=== PATIENT | female | born 1980 ===

== ENCOUNTER 2016-07-14 14:09 | Emergency (ER) | payer SELFPAY ==
[2016-07-14 14:09] VITALS: BMI 23.0
--- NOTE | 2016-07-14 15:00 | C.PDOC ---
History Of Present Illness 35 yo female come in for evaluation of Right thumb blunt injury sustained last night " shower door closed on my my finger by accident". pain is localized over the Right thumb, worse with movement. Otherwise, denies deformity, weakness, sensory or vascular deficits to Right hand. FYI: Pt is well known to ED due to multiple visits to due various complaints. Time Seen by Provider: 07/14/16 14:25 Chief Complaint (Nursing): Upper Extremity Problem/Injury History Per: Patient Onset/Duration Of Symptoms: Sudden Onset Current Symptoms Are (Timing): Still Present Past Medical History Reviewed: Historical Data, Nursing Documentation, Vital Signs Vital Signs: Last Vital Signs Temp 98.1 F 07/14/16 14:19 Pulse 89 07/14/16 14:19 Resp 16 07/14/16 14:19 BP 101/63 07/14/16 14:19 Pulse Ox 100 07/14/16 14:19 - Medical History PMH: Asthma, Back Problems, Migraine Denies: Chronic Kidney Disease Surgical History: - [facility] Procedures INTRODUCE OF OTH THERAP SUBST INTO RESP TRACT, VIA OPENING (07/04/15) Family History: States: No Known Family Hx - Social History Hx Tobacco Use: Yes Hx Alcohol Use: No Hx Substance Use: No - Immunization History Hx Tetanus Toxoid Vaccination: No Hx Influenza Vaccination: No Hx Pneumococcal Vaccination: No Review Of Systems Except As Marked, All Systems Reviewed And Found Negative. Musculoskeletal: Positive for: Other (Right thumb pain) Skin: Positive for: Bruising Neurological: Negative for: Weakness, Numbness Physical Exam - Physical Exam Appears: Well, Non-toxic, No Acute Distress Skin: Normal Color, Warm Extremity: Normal ROM (mild decrease on AROM over Right 1st MCPJ due to pain), Tenderness (over dorsal aspect Right hand overlying 1st MCB and over 1st MCJJ with nos mild edema. NO palpable defomrity, no ecchymoses, no skin changes.), Capillary Refill (less than 2sec to Right thumb), No Deformity, Other (no neurovascular deficits to Right thumb distally to injury.) Neurological/Psych: Oriented x3, Normal Speech, Normal Motor, Normal Sensation, Normal Reflexes ED Course And Treatment - Other Rad Right thumb X-Ray: Interpreted by Me, Viewed By Me Interpretation: no acute fx or dislocation Progress Note: on re-eavluation, pt is afebrile, hemodynamiclay stable. non- toxic. Right hand; exam c/w thumb contusion. no skin changes, no neurovascular deficits. xray review and appears noraml. Aluminium finger Splint applied to Right thumb. Analgesics given. Pt advised and ref. to F/u with hand specialist for re-evaluation. Return if any new changes. Disposition Counseled Patient/Family Regarding: Studies Performed, Diagnosis, Need For Followup, Rx Given - Disposition Referrals: Ileana Shah MD [Staff Provider] - Disposition: HOME/ ROUTINE Disposition Time: 15:57 Condition: STABLE Additional Instructions: Splint Light duty to injured finger for 1 week take pain medication as need for pain Follow up with Hand specialist in 2-3 days for re-evaluation. Prescriptions: traMADol [Ultram] 50 mg PO TID #7 tab Instructions: Finger Sprain (ED) - Clinical Impression Clinical Impression: Finger contusion
--- NOTE | 2016-07-14 16:10 | RAD ---
PROCEDURE: Right Thumb radiographs. HISTORY: injury COMPARISON: None available. FINDINGS: RIGHT THUMB: Unremarkable right 1st digit without acute displaced fracture identified. Remainder of the right hand (as seen on the AP view) grossly unremarkable. JOINTS: No dislocation. SOFT TISSUES: Unremarkable. No evidence of radiopaque foreign body. OTHER FINDINGS: None. IMPRESSION: No acute displaced fracture or dislocation identified. If symptoms persist or if there is continued clinical concern, x-ray follow-up in 7-10 days should be considered.
[2016-07-14 16:20] VITALS: BP 105/62; PULSE 81; RESP 17; TEMP 98.7; O2SAT 99
== END 2016-07-14 16:19 | disposition home or self-care (01) ==
LOC: C.ER 14:09
DX: S60.011A Contusion of right thumb without damage to nail, initial encounter (principal); W23.0XXA Caught, crushed, jammed, or pinched between moving objects, initial encounter; Y93.89 Activity, other specified; Y92.002 Bathroom of unspecified non-institutional (private) residence as the place of occurrence of the external cause

== ENCOUNTER 2016-09-20 13:26 | Emergency (ER) | payer MEDICAID, OTHER ==
[2016-09-20 13:26] VITALS: BMI 23.8
[2016-09-20 13:55] VITALS: TEMP 97.9
--- NOTE | 2016-09-20 15:30 | C.PDOC ---
History Of Present Illness 36 y/o female, history of asthma, presents to ED s/p fall down 4 steps and hitting her right anterior ribs. Denies head injury or LOC. Now complains of pain that worsens with breathing and movement. No improvement with Tylenol, Motrin. Denies abdominal pain, nausea, vomiting, or other associated symptoms. Time Seen by Provider: 09/20/16 14:36 Chief Complaint (Nursing): Upper Extremity Problem/Injury History Per: Patient History/Exam Limitations: no limitations Onset/Duration Of Symptoms: Hrs Current Symptoms Are (Timing): Still Present Exacerbating Factor(s): Movement Recent travel outside of the [place]: No Past Medical History Reviewed: Historical Data, Nursing Documentation, Vital Signs Vital Signs: Last Vital Signs Temp 97.9 F 09/20/16 13:52 Pulse 75 09/20/16 18:16 Resp 18 09/20/16 18:16 BP 102/62 09/20/16 18:16 Pulse Ox 98 09/20/16 18:16 - Medical History PMH: Asthma, Back Problems, Migraine Surgical History: (x3) - [facility] Procedures INTRODUCE OF OTH THERAP SUBST INTO RESP TRACT, VIA OPENING (07/04/15) Family History: States: Unknown Family Hx - Social History Hx Tobacco Use: Yes Hx Alcohol Use: No Hx Substance Use: No - Immunization History Hx Tetanus Toxoid Vaccination: No Hx Influenza Vaccination: No Hx Pneumococcal Vaccination: No Review Of Systems Except As Marked, All Systems Reviewed And Found Negative. Constitutional: Negative for: Fever, Chills Cardiovascular: Negative for: Chest Pain Respiratory: Negative for: Cough, Shortness of Breath Gastrointestinal: Negative for: Nausea, Vomiting, Abdominal Pain Musculoskeletal: Positive for: Other (right anterior rib pain ) Skin: Negative for: Rash Neurological: Negative for: Headache, Dizziness Physical Exam - Physical Exam Appears: Non-toxic, Other (in obviois discomfort) Skin: Normal Color, Warm, Dry Head: Atraumatic, Normacephalic Neck: No Midline Cervical Tenderness, No Paracervical Tenderness, No Step Off Deformity, Supple Chest: Symmetrical, Tenderness (right rib tenderness, distal to breast, no crepitus or stepoff noted), No Ecchymosis Cardiovascular: Rhythm Regular Respiratory: Normal Breath Sounds, No Rales, No Rhonchi, No Wheezing Gastrointestinal/Abdominal: Soft, No Tenderness (no RUQ tenderness), No Distention, No Guarding, No Rebound Back: Normal Inspection, No CVA Tenderness, No Paraspinal Tenderness Extremity: Normal ROM, Capillary Refill (< 2 sec. ) Neurological/Psych: Oriented x3, Normal Speech, Normal Cognition, Other (neuro intact) ED Course And Treatment O2 Sat by Pulse Oximetry: 100 (RA) Pulse Ox Interpretation: Normal - Other Rad Chest/Ribs XR X-Ray: Viewed By Me, Read By Radiologist Interpretation: IMPRESSION: No acute findings related to/accounting for the clinical presentation. Medical Decision Making Medical Decision Making: pt sts she takes codeine when needed for pain; denies rash for allergy, sts it only gives her an upset stomach. pt reports decreased pain after one percocet. pt sts she has muscle relaxants at home. will dc with aleve and tylenol, take own muscle relaxant. Disposition - Disposition Referrals: Inessa Han MD [Medical Doctor] - Disposition: HOME/ ROUTINE Disposition Time: 18:02 Condition: IMPROVED Additional Instructions: Take muscle relaxants as prescribed that you have at home. Cold packs to affected area several times a day. Take Aleve every 12 hours. take Tylenol in between. FOllow up with your pmd, in 1-2 days. Return to ER immediately for any shortness of breathing. worse pain, or any other concerns. Prescriptions: Acetaminophen [Acetaminophen Extra Strength] 1,000 mg PO TID #30 tablet Naproxen 500 mg PO BID #20 tab Instructions: Rib Contusion (ED) Forms: General Discharge Instructions - Clinical Impression Clinical Impression: Contusion of rib on right side - PA / GLASS DECORATOR / Resident Statement MD/DO has reviewed & agrees with the documentation as recorded. - Scribe Statement The provider has reviewed the documentation as recorded by the Scribe Kulwinder Cueto All medical record entries made by the Dcibmiguel ángel were at my direction and personally dictated by me. I have reviewed the chart and agree that the record accurately reflects my personal performance of the history, physical exam, medical decision making, and the department course for this patient. I have also personally directed, reviewed, and agree with the discharge instructions and disposition.
[2016-09-20] MEDS ORDERED: Oxycodone/Acetaminophen 5/325 mg Tab PO STA (16:04)
[2016-09-20] MEDS ORDERED: Oxycodone/Acetaminophen 5/325 mg Tab ONE (16:10)
--- NOTE | 2016-09-20 17:15 | RAD ---
PROCEDURE: Chest and right ribs HISTORY: Anterior posttraumatic right rib pain COMPARISON: 07/04/2016 TECHNIQUE: Frontal radiograph of the chest and multiple oblique radiographs of the right ribs were obtained. FINDINGS: RIGHT RIBS: No fracture or focal lesion visualized. LUNGS: Clear. PLEURA: No pneumothorax or pleural fluid. CARDIOVASCULAR: Normal sized heart. No pulmonary vascular congestion. OTHER FINDINGS: None. IMPRESSION: No acute findings related to/accounting for the clinical presentation.
[2016-09-20 18:16] VITALS: BP 102/62; PULSE 75; RESP 18
[2016-09-21 13:46] VITALS: O2SAT 100
== END 2016-09-20 18:17 | disposition home or self-care (01) ==
LOC: C.ER 13:26
DX: S20.211A Contusion of right front wall of thorax, initial encounter (principal); W10.9XXA Fall (on) (from) unspecified stairs and steps, initial encounter

== ENCOUNTER 2016-11-05 | Emergency (ER) | payer SELFPAY ==
[2016-11-05 00:02] VITALS: BMI 23.8
[2016-11-05] MEDS ORDERED: Sodium Chloride 0.9% 1,000 ML IV STA (01:21)
[2016-11-05 01:36] LABS: BASO # 0.1 K/uL (0.0-0.2); BASO % 0.8 % (0.0-2.0); EOS # 0.6 K/uL (0.0-0.7); EOS % 5.7 % (0.0-4.0); HEMOGLOBIN 11.7 g/dL (11.0-16.0); LYMPH # 3.1 K/uL (1.0-4.3); LYMPH % 30.2 % (20.0-40.0); MEAN CELL VOLUME 83.9 fL (81.0-99.0); MEAN CORPUSCULAR HEMOGLOBIN 26.3 pg (27.0-31.0); MEAN CORPUSCULAR HGB CONC 31.4 g/dL (33.0-37.0); MONO % 9.6 % (0.0-10.0); NEUT # 5.6 K/uL (1.8-7.0); NEUT % 53.7 % (50.0-75.0); RBC 4.45 Mil/uL (3.80-5.20); RED CELL DISTRIBUTION WIDTH 14.5 % (11.5-14.5); WHITE BLOOD COUNT 10.4 K/uL (4.8-10.8)
[2016-11-05 01:57] LABS: ALBUMIN 3.6 g/dL (3.5-5.0)
[2016-11-05 01:59] LABS: GFR AFRICAN-AMERICAN > 60; GFR NON-AFRICAN AMERICAN > 60
[2016-11-05 02:00] LABS: ALB/GLOB RATIO 1.2 (1.0-2.1); ALT/SGPT 87 U/L (9-52); AST/SGOT 62 U/L (14-36); BLOOD UREA NITROGEN 18 mg/dL (7-17); CALCIUM 8.4 mg/dl (8.6-10.4)
[2016-11-05 02:06] LABS: BARBITURATES, UR NEGATIVE (NEGATIVE); BENZODIAZEPINES, UR NEGATIVE (NEGATIVE)
[2016-11-05 02:07] LABS: SQUAMOUS EPITHIAL 1 /hpf (0-5); URINE BILIRUBIN NEGATIVE (NEGATIVE); URINE BLOOD NEGATIVE (NEGATIVE); URINE CLARITY Clear (Clear); URINE COLOR Yellow (YELLOW); URINE GLUCOSE (UA) NORMAL (Normal); URINE LEUKOCYTE ESTERASE 2+ Leu/uL (Negative); URINE NITRATE NEGATIVE (NEGATIVE); URINE PROTEIN 1+ mg/dL (NEGATIVE); URINE UROBILINOGEN NORMAL mg/dL (0.2-1.0)
[2016-11-05 02:09] LABS: OPIATES, UR NEGATIVE (NEGATIVE); PHENCYCLIDINE, UR NEGATIVE (NEGATIVE)
[2016-11-05 02:11] LABS: HCG,QUALITATIVE URINE NEGATIVE (NEGATIVE)
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
--- NOTE | 2016-11-05 11:21 | RAD ---
PROCEDURE: Right Knee Radiographs. HISTORY: injury COMPARISON: None. FINDINGS: BONES: Normal. No fracture. JOINTS: Normal. No osteoarthritis. JOINT EFFUSION: None. OTHER FINDINGS: None. IMPRESSION: Normal radiographs of the right knee.
[2016-11-05 12:21] VITALS: BP 132/75; PULSE 78; RESP 18; TEMP 98.5; O2SAT 99
== END 2016-11-05 04:00 | disposition home or self-care (01) ==
LOC: C.ER
DX: S80.01XA Contusion of right knee, initial encounter (principal); S00.83XA Contusion of other part of head, initial encounter; S16.1XXA Strain of muscle, fascia and tendon at neck level, initial encounter; W18.09XA Striking against other object with subsequent fall, initial encounter; Y92.410 Unspecified street and highway as the place of occurrence of the external cause
CPT/HCPCS: 70450; 72125; 73562; 80053; 81001; 84703; 85025; 99285; G0480

== ENCOUNTER 2016-11-07 00:23 | Emergency (ER) | payer SELFPAY ==
[2016-11-07 00:24] VITALS: BMI 23.8
== END 2016-11-07 01:01 | disposition left against medical advice (07) ==
LOC: C.ER 00:23
DX: Z04.8 Encounter for examination and observation for other specified reasons (principal); Z02.9 Encounter for administrative examinations, unspecified

== ENCOUNTER 2016-12-13 12:25 | Emergency (ER) | payer OTHER ==
[2016-12-13 13:02] VITALS: BMI 24.9
--- NOTE | 2016-12-13 13:10 | C.PDOC ---
Time Seen by Provider: 12/13/16 13:06 Chief Complaint (Nursing): Dental Pain History Per: Patient Onset/Duration Of Symptoms: Days (1) Current Symptoms Are (Timing): Still Present Severity: Moderate Dental/Oral: 1 - pain Quality: Positive for: "Pain" Additional History Per: Prior Records Past Medical History Reviewed: Historical Data, Nursing Documentation, Vital Signs Vital Signs: Last Vital Signs Temp 98 F 12/13/16 13:03 Pulse 96 H 12/13/16 13:03 Resp 18 12/13/16 13:03 BP 114/74 12/13/16 13:03 Pulse Ox 98 12/13/16 13:03 - Medical History PMH: Asthma, Back Problems, Migraine Surgical History: (x3) - [facility] Procedures INTRODUCE OF OTH THERAP SUBST INTO RESP TRACT, VIA OPENING (07/04/15) Family History: States: Unknown Family Hx - Social History Hx Tobacco Use: Yes Hx Alcohol Use: No Hx Substance Use: No - Immunization History Hx Tetanus Toxoid Vaccination: No Hx Influenza Vaccination: No Hx Pneumococcal Vaccination: No Review Of Systems Except As Marked, All Systems Reviewed And Found Negative. Constitutional: Negative for: Fever, Weakness ENT: Positive for: Mouth Pain. Negative for: Throat Pain Cardiovascular: Negative for: Chest Pain Respiratory: Negative for: Shortness of Breath Gastrointestinal: Negative for: Vomiting, Abdominal Pain Musculoskeletal: Negative for: Neck Pain Skin: Negative for: Rash Neurological: Negative for: Weakness, Numbness, Seizures, Altered Mental Status Physical Exam - Physical Exam Appears: Non-toxic, No Acute Distress Skin: Normal Color, Warm, Dry, No Rash Head: Atraumatic, Normacephalic Eye(s): bilateral: Normal Inspection, PERRL, EOMI Oral Mucosa: Moist, No Drooling, No Trismus Teeth: Caries (Very poor dentition), Tender To Palpation (left lower) Gingiva: Swelling, Tender, No Abscess Throat: Normal Neck: Normal ROM, Supple Lymphatic: Adenopathy (left submandibular) Cardiovascular: Rhythm Regular Respiratory: Normal Breath Sounds, No Accessory Muscle Use Gastrointestinal/Abdominal: Soft, No Tenderness Extremity: Normal ROM Neurological/Psych: Oriented x3, Normal Speech, Normal Motor, Normal Sensation ED Course And Treatment O2 Sat by Pulse Oximetry: 98 Pulse Ox Interpretation: Normal Reassessment Condition: Improved Disposition Counseled Patient/Family Regarding: Diagnosis, Need For Followup, Rx Given - [facility]position [facility] Disposition: HOME/ ROUTINE Disposition Time: 13:47 Condition: IMPROVED Additional Instructions: Follow up with a Dentist as soon as possible within 1 week. Return to the ER if you develop fever, worsening of symptoms or if you have any other concerns. Prescriptions: Amoxicillin/Clavulanate [Augmentin 875 MG-125 MG] 1 tab PO BID #14 tab Naproxen [Naprosyn] 1 tab PO BID PRN #20 tab PRN Reason: Pain Instructions: Toothache (ED) Forms: [employer] (Jamaican), [facility] - Clinical Impression Clinical Impression: Toothache
[2016-12-13 13:11] VITALS: BP 114/74; PULSE 96; RESP 18; TEMP 98; O2SAT 98
[2016-12-13] MEDS ORDERED: Amoxicillin-Clav 875-125 mg Tab PO STA (13:14)
[2016-12-13] MEDS ORDERED: Amoxicillin-Clav 875-125 mg Tab PO ONE (13:18)
[2016-12-13] MEDS ORDERED: Naproxen 550 mg Tab PO STA (13:19)
[2016-12-13] MEDS ORDERED: Naproxen 550 mg Tab PO ONE (13:23)
== END 2016-12-13 13:54 | disposition home or self-care (01) ==
LOC: C.ER 12:25 → SUPCPDRO 12:25 → C.ER 13:54
DX: K08.89 Other specified disorders of teeth and supporting structures (principal)

== ENCOUNTER 2017-04-14 14:49 | Observation (INO) | payer OTHER ==
[2017-04-14 15:17] VITALS: BMI 23.8
[2017-04-14] MEDS ORDERED: Albuterol-Ipratrop 3 mg / 0.5 (3 ml) UD IH STA (15:36)
--- NOTE | 2017-04-14 15:39 | C.PDOC ---
History Of Present Illness 36 y/o F c PMHx asthma p/w shortness of breath x 4 days. States similar to previous asthma exacerbations. Using albuterol nebulizer at home and symbicort. Reports cough, complains of thoracic pain. Reports slight delay in urination for past 2 days. Never intubated, last admitted 20 years ago. Time Seen by Provider: 04/14/17 15:10 Chief Complaint (Nursing): Shortness Of Breath History Per: Patient History/Exam Limitations: no limitations Onset/Duration Of Symptoms: Days Initiating Event: Upper Respiratory Illness Past Medical History Reviewed: Historical Data, Nursing Documentation, Vital Signs Vital Signs: Last Vital Signs Temp 98.7 F 04/14/17 15:09 Pulse 92 H 04/14/17 15:40 Resp 20 04/14/17 15:29 BP 112/65 04/14/17 15:09 Pulse Ox 95 04/14/17 15:54 - Medical History PMH: Asthma, Back Problems, Migraine Surgical History: No Surg Hx, (x3) - [facility] Procedures INTRODUCE OF OTH THERAP SUBST INTO RESP TRACT, VIA OPENING (07/04/15) Family History: States: No Known Family Hx, Other - Social History Hx Tobacco Use: Yes Hx Alcohol Use: No Hx Substance Use: No - Immunization History Hx Tetanus Toxoid Vaccination: No Hx Influenza Vaccination: No Hx Pneumococcal Vaccination: No Review Of Systems Except As Marked, All Systems Reviewed And Found Negative. Constitutional: Negative for: Fever Gastrointestinal: Negative for: Abdominal Pain Physical Exam - Physical Exam Additional Physical Exam Comments: Constitutional: No acute distress. Head: Normocephalic. Atraumatic. Eyes: PERRL. ENT: Moist mucous membranes. Neck: Supple. Cardiovascular: Regular rate. Radial pulse 2+ bilaterally. Tachycardic Chest: No tenderness. Respiratory:Wheezing diffusely. Rhonchi while coughing. GI: Soft. Nontender. Nondistended. Back: No CVA tenderness. Musculoskeletal: No tenderness or swelling of extremities. Skin: No rash. Neurologic: Alert, no focal deficit. ED Course And Treatment - Laboratory Results Result Diagrams: 04/14/17 18:23 04/14/17 18:23 O2 Sat by Pulse Oximetry: 95 (RA) Pulse Ox Interpretation: Normal Medical Decision Making Medical Decision Making: Plan: Duonebs, prednisone. CXR, r/o PNA. Peak flow. CXR show RLL pnuemonia. Started on CAP medications. Dr. Steinberg accepts to hospitalist service for asthma exacerbation and pneumonia. Disposition Discussed With .: Myranda Steinberg - Disposition Disposition: HOSPITALIZED Disposition Time: 18:50 Condition: FAIR Forms: [facility] (Burkinan) - POA Core Measure Indicators: Pneumonia - Clinical Impression Clinical Impression: Asthma exacerbation, Pneumonia - Scribe Statement The provider has reviewed the documentation as recorded by the Dcibmiguel ángel Kapadia All medical record entries made by the Dcibmiguel ángel were at my direction and personally dictated by me. I have reviewed the chart and agree that the record accurately reflects my personal performance of the history, physical exam, medical decision making, and the department course for this patient. I have also personally directed, reviewed, and agree with the discharge instructions and disposition.
[2017-04-14] MEDS ORDERED: Albuterol-Ipratrop 3 mg / 0.5 (3 ml) UD ONE ×2 (15:40→15:45)
[2017-04-14] MEDS ORDERED: MethylPREDNISolone 40 mg Vial IVP STA (15:43)
[2017-04-14 17:29] LABS: RBC URINE 5 /hpf (0-3); URINE BACTERIA OCC (<OCC); URINE BILIRUBIN NEGATIVE (NEGATIVE); URINE COLOR Amber (YELLOW); URINE GLUCOSE (UA) NORMAL (Normal); URINE KETONE NEGATIVE (NEGATIVE); URINE LEUKOCYTE ESTERASE TRACE Leu/uL (Negative); URINE PROTEIN 1+ mg/dL (NEGATIVE); WBC URINE 4 /hpf (0-5)
[2017-04-14 17:30] LABS: URINE BLOOD 1+ (NEGATIVE)
[2017-04-14] MEDS ORDERED: Azithromycin 500 MG in Sodium Chloride 0.9% 250 ML IVPB STA (18:07)
--- NOTE | 2017-04-14 18:11 | RAD ---
HISTORY: cough COMPARISON: Comparison is made with 09/20/2026 TECHNIQUE: Chest PA and lateral FINDINGS: LUNGS: There is a new heterogeneous infiltrate and opacity at the medial aspect of the right lower lung suspicious for pneumonia. PLEURA: No significant pleural effusion identified. No pneumothorax apparent. CARDIOVASCULAR: Normal. OSSEOUS STRUCTURES: No significant abnormalities. VISUALIZED UPPER ABDOMEN: Normal. OTHER FINDINGS: None. IMPRESSION: Heterogeneous infiltrate and opacity at the right lower lung suspicious for pneumonia.
[2017-04-14 18:29] LABS: BASO # 0.1 K/uL (0.0-0.2); BASO % 0.4 % (0.0-2.0); EOS # 0.1 K/uL (0.0-0.7); EOS % 0.6 % (0.0-4.0); LYMPH # 0.7 K/uL (1.0-4.3); LYMPH % 3.3 % (20.0-40.0); MEAN CORPUSCULAR HGB CONC 33.1 g/dL (33.0-37.0); MEAN PLATELET VOLUME 8.6 fL (7.2-11.7); MONO # 0.3 K/uL (0.0-0.8); MONO % 1.3 % (0.0-10.0); RED CELL DISTRIBUTION WIDTH 13.7 % (11.5-14.5)
[2017-04-14 18:40] LABS: MEAN CELL VOLUME 81.7 fL (81.0-99.0); PLATELET COUNT 319 K/uL (130-400)
[2017-04-14 18:41] LABS: ALKALINE PHOSPHATASE 80 U/L (38-126); ALT/SGPT 22 U/L (9-52); AST/SGOT 21 U/L (14-36); BILIRUBIN,TOTAL 0.5 mg/dL (0.2-1.3); BLOOD UREA NITROGEN 13 mg/dL (7-17); CALCIUM 9.4 mg/dl (8.6-10.4); CARBON DIOXIDE 29 mmol/L (22-30); CHLORIDE 94 mmol/L (98-107); GFR AFRICAN-AMERICAN > 60; GLUCOSE,RANDOM 165 mg/dL (65-105); POTASSIUM 4.1 mmol/L (3.6-5.2); SODIUM 133 mmol/L (132-148)
[2017-04-14 18:46] LABS: ALB/GLOB RATIO 0.9 (1.0-2.1)
[2017-04-14 20:15] LABS: EOSINOPHIL 2 % (0-4); NEUTROPHIL 94 % (50-75); TOTAL CELLS COUNTED 100
[2017-04-14] MEDS ORDERED: Albuterol-Ipratrop 3 mg / 0.5 (3 ml) UD INH PRN (21:10)
--- NOTE | 2017-04-14 22:19 | CP.PCM.HP ---
<Jerome Flores - Last Filed: 04/15/17 00:55> History of Present Illness - History of Present Illness History of Present Illness: PGY-1 H&P for Dr[address] Garcia CC: "Shortness of breath" This is a 36 year old female with PMHx Asthma who presents complaining of progressive shortness of breath that began 4 days prior. Patient states that she was also wheezing and coughing, bringing up yellow-green mucus. Patient states that this happened gradually and progressively worsened. Patient came in today because she could no longer tolerate the dyspnea. Patient's usual medications do not seem to be providing her with any relief per patient. Patient states that it is painful to take a deep breath and she feels some chest congestion. Patient also admits intermittent dizziness and lightheadedness. Patient states that the medications given to her in the ED seem to be helping. Patient admits subjective fevers at home but denies chills. PMHx: Asthma PSHx: denies Allergies: Codeine, seafood, benadryl Social: Patient admits to smoking 2 or 3 cigarettes daily but states that she has stopped 2 weeks ago. Denies alcohol, drugs. Patient is not currently working. Home Meds: Albuterol nebulizer, Symbicort 160/4.5 mg Present on Admission - Present on Admission Any Indicators Present on Admission: No Review of Systems - Constitutional Constitutional: Fever. absent: Chills - EENT Eyes: absent: Change in Vision Ears: absent: Decreased Hearing Nose/Mouth/Throat: absent: Nasal Congestion - Cardiovascular Cardiovascular: Dyspnea, Other (chest congestion). absent: Chest Pain - Respiratory Respiratory: Cough, Dyspnea, Wheezing, Pain on Inspiration (deep inspiration), Chest Congestion - Gastrointestinal Gastrointestinal: absent: Abdominal Pain, Constipation, Diarrhea, Nausea, Vomiting - Musculoskeletal Musculoskeletal: Back Pain - Integumentary Integumentary: absent: Rash - Neurological Neurological: absent: Weakness - Psychiatric Psychiatric: absent: Anxiety - Endocrine Endocrine: absent: Fatigue Past Patient History - Infectious Disease Hx of Infectious Diseases: None - Tetanus Immunizations Tetanus Immunization: Unknown - Past Medical History & Family History Past Medical History?: Yes - Past Social History Smoking Status: Light Smoker < 10 Cigarettes Daily - CARDIAC Hx Cardiac Disorders: No - PULMONARY Hx Asthma: Yes - NEUROLOGICAL Hx Migraine: Yes - HEENT Hx HEENT Problems: No - RENAL Hx Chronic Kidney Disease: No - ENDOCRINE/METABOLIC Hx Endocrine Disorders: No - HEMATOLOGICAL/ONCOLOGICAL Hx Blood Disorders: No - INTEGUMENTARY Hx Dermatological Problems: No - MUSCULOSKELETAL/RHEUMATOLOGICAL Hx Musculoskeletal Disorders: Yes - GASTROINTESTINAL Hx Gastrointestinal Disorders: No - GENITOURINARY/GYNECOLOGICAL Hx Genitourinary Disorders: No - PSYCHIATRIC Hx Substance Use: No - SURGICAL HISTORY Hx Surgeries: Yes Hx Section: Yes (x2) - ANESTHESIA Hx Anesthesia: Yes Hx Anesthesia Reactions: No Hx Malignant Hyperthermia: No Meds Allergies/Adverse Reactions: Allergies Allergy/AdvReac Type Severity Reaction Status Date / Time diphenhydramine HCl Allergy Mild RASH Verified 04/14/17 15:07 [From Benadryl] codeine Allergy RASH Verified 04/14/17 15:07 seafood Allergy SWELLING Uncoded 04/14/17 15:07 Physical Exam - Constitutional Appears: No Acute Distress - Head Exam Head Exam: ATRAUMATIC, NORMOCEPHALIC - Eye Exam Eye Exam: EOMI, PERRL - ENT Exam ENT Exam: Mucous Membranes Moist - Respiratory Exam Respiratory Exam: Rhonchi (right lung field), Wheezes (bilaterally). absent: Accessory Muscle Use Additional comments: Peak flow done at bedside 260 - Cardiovascular Exam Cardiovascular Exam: REGULAR RHYTHM, +S1, +S2 - GI/Abdominal Exam GI & Abdominal Exam: Normal Bowel Sounds, Soft. absent: Tenderness - Extremities Exam Extremities exam: Positive for: pedal pulses present - Neurological Exam Neurological exam: Alert, CN II-XII Intact, Oriented x3 - Psychiatric Exam Psychiatric exam: Normal Affect, Normal Mood - Skin Skin Exam: Dry, Warm Results - Vital Signs Recent Vital Signs: Last Vital Signs Temp 98 F 04/14/17 22:07 Pulse 78 04/14/17 22:07 Resp 16 04/14/17 22:07 BP 112/68 04/14/17 22:07 Pulse Ox 97 04/14/17 22:07 - Labs Result Diagrams: 04/14/17 18:23 04/14/17 18:23 Labs: Laboratory Results - last 24 hr 04/14/17 04/14/17 04/14/17 17:22 18:23 18:23 WBC 21.0 H D RBC 4.65 Hgb 12.6 Hct 38.0 MCV 81.7 D MCH 27.0 MCHC 33.1 RDW 13.7 Plt Count 319 D MPV 8.6 Neut % (Auto) 94.4 H Lymph % (Auto) 3.3 L [place] % (Auto) 1.3 Eos % (Auto) 0.6 Baso % (Auto) 0.4 Neut # 19.9 H Lymph # 0.7 L Trigg # 0.3 Eos # 0.1 Baso # 0.1 Neutrophils % (Manual) 94 H Lymphocytes % (Manual) 4 L Monocytes % (Manual) TEST NOT PERFORMED Eosinophils % (Manual) 2 Platelet Estimate Normal RBC Morphology Normal Sodium 133 Potassium 4.1 Chloride 94 L Carbon Dioxide 29 Anion Gap 15 BUN 13 Creatinine 0.5 L Est GFR ( Amer) > 60 Est GFR (Non-Af Amer) > 60 Random Glucose 165 H Calcium 9.4 Total Bilirubin 0.5 AST 21 ALT 22 Alkaline Phosphatase 80 Total Protein 9.0 H Albumin 4.2 Globulin 4.8 H Albumin/Globulin Ratio 0.9 L Urine Color Chloe Urine Clarity Hazy Urine pH 5.0 Ur Specific [place] 1.031 H Urine Protein 1+ H Urine Glucose (UA) Normal Urine Ketones Negative Urine Blood 1+ H Urine Nitrate Negative Urine Bilirubin Negative Urine Urobilinogen 4.0 H Ur Leukocyte Esterase Trace Urine WBC (Auto) 4 Urine RBC (Auto) 5 H Ur Squamous Epith Cells 15 H Urine Bacteria Occ H Assessment & Plan - Assessment and Plan (Free Text) Plan: Community Acquired Pneumonia CXR shows infiltrate and opacity at right lower lung field suspicious for pneumonia f/u blood cultures f/u urine cultures f/u urine legionella f/u mycoplasma Azithromycin 500 mg IV daily Ceftriaxone 1 gm IV daily Asthma Exacerbation Duoneb Q6H prn Solumedrol 60 mg IV Q6H KIT O2 via NC Prophylactic Measure Heart Healthy Diet SCDs Protonix Case DW Dr. Radha Flores PGY-1 <Tirso Garcia - Last Filed: 04/15/17 06:27> Results - Vital Signs Recent Vital Signs: Last Vital Signs Temp 98.4 F 04/15/17 00:00 Pulse 66 04/15/17 00:00 Resp 18 04/15/17 00:00 BP 107/66 04/15/17 00:00 Pulse Ox 99 04/15/17 00:00 - Labs Result Diagrams: 04/14/17 18:23 04/14/17 18:23 Labs: Laboratory Results - last 24 hr 04/14/17 04/14/17 04/14/17 17:22 18:23 18:23 WBC 21.0 H D RBC 4.65 Hgb 12.6 Hct 38.0 MCV 81.7 D MCH 27.0 MCHC 33.1 RDW 13.7 Plt Count 319 D MPV 8.6 Neut % (Auto) 94.4 H Lymph % (Auto) 3.3 L [place] % (Auto) 1.3 Eos % (Auto) 0.6 Baso % (Auto) 0.4 Neut # 19.9 H Lymph # 0.7 L Trigg # 0.3 Eos # 0.1 Baso # 0.1 Neutrophils % (Manual) 94 H Lymphocytes % (Manual) 4 L Monocytes % (Manual) TEST NOT PERFORMED Eosinophils % (Manual) 2 Platelet Estimate Normal RBC Morphology Normal Sodium 133 Potassium 4.1 Chloride 94 L Carbon Dioxide 29 Anion Gap 15 BUN 13 Creatinine 0.5 L Est GFR ( Amer) > 60 Est GFR (Non-Af Amer) > 60 Random Glucose 165 H Calcium 9.4 Total Bilirubin 0.5 AST 21 ALT 22 Alkaline Phosphatase 80 Total Protein 9.0 H Albumin 4.2 Globulin 4.8 H Albumin/Globulin Ratio 0.9 L Urine Color Chloe Urine Clarity Hazy Urine pH 5.0 Ur Specific [place] 1.031 H Urine Protein 1+ H Urine Glucose (UA) Normal Urine Ketones Negative Urine Blood 1+ H Urine Nitrate Negative Urine Bilirubin Negative Urine Urobilinogen 4.0 H Ur Leukocyte Esterase Trace Urine WBC (Auto) 4 Urine RBC (Auto) 5 H Ur Squamous Epith Cells 15 H Urine Bacteria Occ H Assessment & Plan - Date & Time Date: 04/15/17 (I have seen and examined the patient. I agree with the findings and plan of care as documented by Dr. Flores. Patient with pneumonia and asthma exacerbation. Azithromycin and rocephin for now. Check sputum and blood cultures. Nebs and solumedrol. Oxygen as needed. Monitor for acute changes.) Time: 06:26 Attending/Attestation - Attestation I have personally seen and examined this patient.: Yes I have fully participated in the care of the patient.: Yes I have reviewed all pertinent clinical information: Yes
[2017-04-14] MEDS ORDERED: Lidocaine 5% Patch TD SCH (23:45)
[2017-04-15] MEDS: Lidocaine 5% Patch TD SCH ×2 (00:30→10:59)
[2017-04-15 02:13] VITALS: TEMP 98.4
[2017-04-15 07:34] LABS: BASO % 0.1 % (0.0-2.0); HEMATOCRIT 36.9 % (34.0-47.0); LYMPH % 6.7 % (20.0-40.0); MEAN CELL VOLUME 81.4 fL (81.0-99.0); MEAN CORPUSCULAR HEMOGLOBIN 27.5 pg (27.0-31.0); MEAN CORPUSCULAR HGB CONC 33.7 g/dL (33.0-37.0); MONO # 0.4 K/uL (0.0-0.8); MONO % 2.7 % (0.0-10.0); PLATELET COUNT 310 K/uL (130-400); RED CELL DISTRIBUTION WIDTH 13.5 % (11.5-14.5); WHITE BLOOD COUNT 15.2 K/uL (4.8-10.8)
[2017-04-15 08:26] LABS: ALB/GLOB RATIO 1.2 (1.0-2.1); ALKALINE PHOSPHATASE 71 U/L (38-126); ALT/SGPT 17 U/L (9-52); AST/SGOT 20 U/L (14-36); BILIRUBIN,TOTAL 0.4 mg/dL (0.2-1.3); BLOOD UREA NITROGEN 16 mg/dL (7-17); CALCIUM 9.2 mg/dl (8.6-10.4); CARBON DIOXIDE 27 mmol/L (22-30); CHLORIDE 99 mmol/L (98-107); GFR AFRICAN-AMERICAN > 60; GLUCOSE,RANDOM 140 mg/dL (65-105); POTASSIUM 4.4 mmol/L (3.6-5.2); SODIUM 134 mmol/L (132-148); TOTAL PROTEIN 7.1 g/dL (6.3-8.3)
[2017-04-15 08:57] LABS: NEUTROPHIL 88 % (50-75); TOTAL CELLS COUNTED 100
[2017-04-15] MEDS ORDERED: MethylPREDNISolone 40 mg Vial IVP SCH (09:15)
[2017-04-15] MEDS ORDERED: Pantoprazole 40 mg EC Tab PO SCH (10:00)
--- NOTE | 2017-04-15 13:55 | CP.PCM.DIS ---
Provider - Provider Date of Admission: 04/14/17 18:43 Attending physician: Myranda Steinberg MD Time Spent in preparation of Discharge (in minutes): 32 Hospital Course - Lab Results Lab Results: Micro Results 04/14/17 16:12 Urine,Clean Catch Urine Culture - Final No Growth (<1,000 CFU/ML) Most Recent Lab Values WBC 15.2 K/uL (4.8-10.8) H 04/15/17 07:15 RBC 4.54 Mil/uL (3.80-5.20) 04/15/17 07:15 Hgb 12.5 g/dL (11.0-16.0) 04/15/17 07:15 Hct 36.9 % (34.0-47.0) 04/15/17 07:15 MCV 81.4 fL (81.0-99.0) 04/15/17 07:15 MCH 27.5 pg (27.0-31.0) 04/15/17 07:15 MCHC 33.7 g/dL (33.0-37.0) 04/15/17 07:15 RDW 13.5 % (11.5-14.5) 04/15/17 07:15 Plt Count 310 K/uL (130-400) 04/15/17 07:15 MPV 9.0 fL (7.2-11.7) 04/15/17 07:15 Neut % (Auto) 90.5 % (50.0-75.0) H 04/15/17 07:15 Lymph % (Auto) 6.7 % (20.0-40.0) L 04/15/17 07:15 [place] % (Auto) 2.7 % (0.0-10.0) 04/15/17 07:15 Eos % (Auto) 0.0 % (0.0-4.0) 04/15/17 07:15 Baso % (Auto) 0.1 % (0.0-2.0) 04/15/17 07:15 Neut # 13.8 K/uL (1.8-7.0) H 04/15/17 07:15 Lymph # 1.0 K/uL (1.0-4.3) 04/15/17 07:15 [place] # 0.4 K/uL (0.0-0.8) 04/15/17 07:15 Eos # 0.0 K/uL (0.0-0.7) 04/15/17 07:15 Baso # 0.0 K/uL (0.0-0.2) 04/15/17 07:15 Neutrophils % (Manual) 88 % (50-75) H 04/15/17 07:15 Band Neutrophils % 1 % (0-2) 04/15/17 07:15 Lymphocytes % (Manual) 9 % (20-40) L 04/15/17 07:15 Monocytes % (Manual) 2 % (0-10) 04/15/17 07:15 Eosinophils % (Manual) 2 % (0-4) 04/14/17 18:23 Platelet Estimate Normal (NORMAL) 04/15/17 07:15 RBC Morphology Normal 04/15/17 07:15 Sodium 134 mmol/L (132-148) 04/15/17 07:15 Potassium 4.4 mmol/L (3.6-5.2) 04/15/17 07:15 Chloride 99 mmol/L (98-107) 04/15/17 07:15 Carbon Dioxide 27 mmol/L (22-30) 04/15/17 07:15 Anion Gap 12 (10-20) 04/15/17 07:15 BUN 16 mg/dL (7-17) 04/15/17 07:15 Creatinine 0.5 mg/dL (0.7-1.2) L 04/15/17 07:15 Est GFR ( Amer) > 60 04/15/17 07:15 Est GFR (Non-Af Amer) > 60 04/15/17 07:15 Random Glucose 140 mg/dL (65-105) H 04/15/17 07:15 Calcium 9.2 mg/dl (8.6-10.4) 04/15/17 07:15 Total Bilirubin 0.4 mg/dL (0.2-1.3) 04/15/17 07:15 AST 20 U/L (14-36) 04/15/17 07:15 ALT 17 U/L (9-52) 04/15/17 07:15 Alkaline Phosphatase 71 U/L (38-126) 04/15/17 07:15 Total Protein 7.1 g/dL (6.3-8.3) 04/15/17 07:15 Albumin 3.8 g/dL (3.5-5.0) 04/15/17 07:15 Globulin 3.2 gm/dL (2.2-3.9) 04/15/17 07:15 Albumin/Globulin Ratio 1.2 (1.0-2.1) 04/15/17 07:15 Urine Color Chloe (YELLOW) 04/14/17 17:22 Urine Clarity Hazy (Clear) 04/14/17 17:22 Urine pH 5.0 (5.0-8.0) 04/14/17 17:22 Ur Specific [place] 1.031 (1.003-1.030) H 04/14/17 17:22 Urine Protein 1+ mg/dL (NEGATIVE) H 04/14/17 17:22 Urine Glucose (UA) Normal mg/dL (Normal) 04/14/17 17:22 Urine Ketones Negative mg/dL (NEGATIVE) 04/14/17 17:22 Urine Blood 1+ (NEGATIVE) H 04/14/17 17:22 Urine Nitrate Negative (NEGATIVE) 04/14/17 17:22 Urine Bilirubin Negative (NEGATIVE) 04/14/17 17:22 Urine Urobilinogen 4.0 mg/dL (0.2-1.0) H 04/14/17 17:22 Ur Leukocyte Esterase Trace [place]/uL (Negative) 04/14/17 17:22 Urine WBC (Auto) 4 /hpf (0-5) 04/14/17 17:22 Urine RBC (Auto) 5 /hpf (0-3) H 04/14/17 17:22 Ur Squamous Epith Cells 15 /hpf (0-5) H 04/14/17 17:22 Urine Bacteria Occ (<OCC) H 04/14/17 17:22 - Hospital Course Hospital Course: Patient is a 36 year old female with PMHx Asthma who presents complaining of progressive shortness of breath that began 4 days prior. Patient states that she was also wheezing and coughing, bringing up yellow-green mucus. Patient states that this happened gradually and progressively worsened. Patient came in today because she could no longer tolerate the dyspnea. Patient's usual medications do not seem to be providing her with any relief per patient. Patient states that it is painful to take a deep breath and she feels some chest congestion. Patient also admits intermittent dizziness and lightheadedness. Patient states that the medications given to her in the ED seem to be helping. Patient admits subjective fevers at home but denies chills. CXR in the ED showed heterogenous infiltrate and opacity at the right lower lung suspicious for pneumonia. Patient was admitted for community acquired pneumonia. For antibiotics, patient was started on Rocephin and Azithromycin. Patient was also started on solumedrol and duonebs. White count on admission was 21.5, and decreased to 15.2. Mycoplasma and urine legionella collected and pending. On day of discharge, patient was doing well. States that breathing improved. Patient was also complaining of lower back pain that is chronic in nature. States that she has had this pain for years after the of her children. Was given motrin and lidoderm patch for the pain. Patient was ambulating and tolerating diet. Patient is medically stable for discharge. Prescribed Amoxicillin 500mg Q8H x 7 days and albuterol MDI. Patient instructed to follow up with [facility] upon discharge [phone]. All questions and concerns were addressed. Discharge Exam - Head Exam Head Exam: ATRAUMATIC, NORMOCEPHALIC - Eye Exam Eye Exam: EOMI, Normal appearance Pupil Exam: NORMAL ACCOMODATION - ENT Exam ENT Exam: Mucous Membranes Moist - Respiratory Exam Respiratory Exam: Clear to PA & Lateral, Wheezes, NORMAL BREATHING PATTERN, UNREMARKABLE. absent: Accessory Muscle Use, Rales, Rhonchi - Cardiovascular Exam Cardiovascular Exam: REGULAR RHYTHM, +S1, +S2. absent: Systolic Murmur - GI/Abdominal Exam GI & Abdominal Exam: Soft. absent: Guarding, Normal Bowel Sounds, Rebound, Rigid, Tenderness - Rectal Exam Rectal Exam: Deferred - Extremities Exam Extremities exam: normal capillary refill, normal inspection, pedal pulses present - Back Exam Back exam: FULL ROM, vertebral tenderness. absent: CVA tenderness (L), CVA tenderness (R), rash noted - Neurological Exam Neurological exam: Alert, CN II-XII Intact, Normal Gait, Oriented x3 - Psychiatric Exam Psychiatric exam: Normal Affect, Normal Mood - Skin Skin Exam: Dry, Normal Color, Warm Discharge Plan - Discharge Medications Prescriptions: Albuterol Sulfate [Proventil Hfa] 0.09 mg IH Q4H PRN 30 Days ml PRN Reason: Shortness Of Breath Amoxicillin 500 mg PO Q8H 7 Days tablet - Follow Up Plan Condition: FAIR Disposition: HOME/ ROUTINE Instructions: Albuterol (By breathing), Amoxicillin/Clavulanate Potassium (By mouth), Asthma (DC), Viral Pneumonia (DC), Heart Healthy Diet (DC), Acute Abdominal Pain (DC) Additional Instructions: follow up with [facility] [phone] in one week
[2017-04-15] MEDS ORDERED: Influenza Vaccine 60 mcg/0.5 mL SYR (4YR UP) IM ONE (14:16)
[2017-04-15 16:33] VITALS: BP 139/75; PULSE 73; RESP 20; O2SAT 98
[2017-04-16] MEDS ORDERED: Influenza Vaccine 60 mcg/0.5 mL SYR (4YR UP) IM ONE (10:00)
== END 2017-04-15 16:30 | disposition home or self-care (01) ==
LOC: C.ER 14:49 → C.9E 18:43 → C.3T 21:15
PROVIDERS: ADMIT Internal Medicine; ATTEND Internal Medicine
DX: J18.9 Pneumonia, unspecified organism (principal); J45.901 Unspecified asthma with (acute) exacerbation; G89.29 Other chronic pain; F17.200 Nicotine dependence, unspecified, uncomplicated
CPT/HCPCS: 36415; 71020; 80053; 81001; 85025; 87040; 87086; 94150; 94640; 96365; 96374; 99285; G0378; J0456; J0696; J1885; J2920; J2930; J7050

== ENCOUNTER 2017-09-16 10:36 | Emergency (ER) | payer SELFPAY ==
[2017-09-16 10:37] VITALS: BMI 24.9
[2017-09-16 10:44] VITALS: RESP 18
[2017-09-16] MEDS ORDERED: Albuterol-Ipratrop 3 mg / 0.5 (3 ml) UD ONE (10:58)
[2017-09-16] MEDS ORDERED: Albuterol-Ipratrop 3 mg / 0.5 (3 ml) UD INH STA ×3 (11:10→14:31)
[2017-09-16] MEDS ORDERED: Sodium Chloride 0.9% 1,000 ML IV ONE (11:17)
[2017-09-16 11:32] LABS: BASO # 0.1 K/uL (0.0-0.2); BASO % 0.6 % (0.0-2.0); EOS # 0.4 K/uL (0.0-0.7); EOS % 4.5 % (0.0-4.0); LYMPH # 1.7 K/uL (1.0-4.3); LYMPH % 17.9 % (20.0-40.0); MEAN CELL VOLUME 82.5 fL (81.0-99.0); MEAN CORPUSCULAR HEMOGLOBIN 27.1 pg (27.0-31.0); MEAN CORPUSCULAR HGB CONC 32.8 g/dL (33.0-37.0); MEAN PLATELET VOLUME 9.9 fL (7.2-11.7); MONO # 0.6 K/uL (0.0-0.8); MONO % 6.2 % (0.0-10.0); NEUT # 6.6 K/uL (1.8-7.0); NEUT % 70.8 % (50.0-75.0); RBC 4.81 Mil/uL (3.80-5.20); RED CELL DISTRIBUTION WIDTH 14.4 % (11.5-14.5); WHITE BLOOD COUNT 9.3 K/uL (4.8-10.8)
[2017-09-16 11:43] LABS: ALB/GLOB RATIO 1.2 (1.0-2.1); ALBUMIN 3.9 g/dL (3.5-5.0); ALT/SGPT 32 U/L (9-52); AST/SGOT 35 U/L (14-36); BLOOD UREA NITROGEN 12 mg/dL (7-17); CALCIUM 8.7 mg/dl (8.6-10.4); GFR AFRICAN-AMERICAN > 60; GFR NON-AFRICAN AMERICAN > 60; LIPASE 123 U/L (23-300)
[2017-09-16 11:59] LABS: SQUAMOUS EPITHIAL 6 /hpf (0-5); URINE AMORPHOUS SEDIMENT RARE /ul (<OCC); URINE BACTERIA RARE (<OCC); URINE BILIRUBIN NEGATIVE (NEGATIVE); URINE BLOOD NEGATIVE (NEGATIVE); URINE CLARITY Hazy (Clear); URINE GLUCOSE (UA) NORMAL (Normal); URINE LEUKOCYTE ESTERASE NEG Leu/uL (Negative); URINE PROTEIN NEGATIVE (NEGATIVE)
[2017-09-16 12:09] LABS: URINE COLOR YELLOW (YELLOW)
[2017-09-16 12:26] LABS: BARBITURATES, UR NEGATIVE (NEGATIVE); BENZODIAZEPINES, UR NEGATIVE (NEGATIVE); PHENCYCLIDINE, UR NEGATIVE (NEGATIVE)
--- NOTE | 2017-09-16 12:29 | RAD ---
HISTORY: abd pain COMPARISON: Chest radiographs 04/14/2017. TECHNIQUE: Chest PA and lateral FINDINGS: LUNGS: No active pulmonary disease. Prior medial right basilar airspace disease appears to have resolved. Left hemidiaphragm is now normal in position. PLEURA: No significant pleural effusion identified. No pneumothorax apparent. CARDIOVASCULAR: Normal. OSSEOUS STRUCTURES: No significant abnormalities. VISUALIZED UPPER ABDOMEN: Normal. OTHER FINDINGS: None. IMPRESSION: No interval acute cardiopulmonary disease appreciated. Prior medial right basilar infiltrate is resolved. Left hemidiaphragm also appears normalized currently
[2017-09-16 12:43] LABS: OPIATES, UR POSITIVE (NEGATIVE)
--- NOTE | 2017-09-16 12:46 | C.PDOC ---
History Of Present Illness 37 year old female with a history of asthma presents to the emergency department with complaints of abdominal pain and asthmatic symptoms. Patient reports her abdominal pain has persisted for one day, and she describes it as sharp. Patient denies nausea, vomiting, diarrhea, urinary symptoms, vaginal bleeding or discharge. Patient states that she has not taken any medication for the pain, and that she has a past surgical history of a . Regarding her asthmatic symptoms, patient reports coughing, wheezing, and shortness of breath. She states that she is a smoker. Time Seen by Provider: 09/16/17 11:03 Chief Complaint (Nursing): Abdominal Pain History Per: Patient History/Exam Limitations: no limitations Onset/Duration Of Symptoms: Days (1) Current Symptoms Are (Timing): Still Present Location Of Pain/Discomfort: Other (abdominal pain) Quality Of Discomfort: Sharp Associated Symptoms: denies: Nausea, Vomiting, Diarrhea, Other (vaginal bleeding or discharge) Past Medical History Reviewed: Historical Data, Nursing Documentation, Vital Signs Vital Signs: Last Vital Signs Temp 98.2 F 09/16/17 10:42 Pulse 88 09/16/17 10:42 Resp 18 09/16/17 10:42 BP 116/76 09/16/17 10:42 Pulse Ox 100 09/16/17 14:42 - Medical History PMH: Asthma, Back Problems, Migraine Denies: Chronic Kidney Disease Surgical History: (x3) - [facility] INTRODUCE OF OTH THERAP SUBST INTO RESP TRACT, VIA OPENING (07/04/15) Family History: States: No Known Family Hx - Social History Hx Tobacco Use: Yes Hx Alcohol Use: No Hx Substance Use: No - Immunization History Hx Tetanus Toxoid Vaccination: No Hx Influenza Vaccination: No Hx Pneumococcal Vaccination: No Review Of Systems Except As Marked, All Systems Reviewed And Found Negative. Respiratory: Positive for: Cough, Shortness of Breath, Wheezing Gastrointestinal: Positive for: Abdominal Pain Physical Exam - Physical Exam Appears: Non-toxic, No Acute Distress Skin: Normal Color, Warm, Dry Head: Atraumatic, Normacephalic Eye(s): bilateral: Normal Inspection Nose: Normal Chest: Symmetrical Cardiovascular: Rhythm Regular, No Murmur Respiratory: Wheezing (bilaterally) Gastrointestinal/Abdominal: No Bowel Sounds, Soft, Tenderness (to the hypogastrium.), No Guarding, No Rebound ED Course And Treatment - Laboratory Results Result Diagrams: 09/16/17 11:27 09/16/17 11:27 O2 Sat by Pulse Oximetry: 100 (RA) Pulse Ox Interpretation: Normal - Other Rad CXR X-Ray: Viewed By Me, Read By Radiologist Interpretation: HISTORY: abd pain. COMPARISON: Chest radiographs 04/14/2017. TECHNIQUE: Chest PA and lateral. FINDINGS: LUNGS: No active pulmonary disease. Prior medial right basilar airspace disease appears to have resolved. Left hemidiaphragm is now normal in position. PLEURA: No significant pleural effusion identified. No pneumothorax apparent. CARDIOVASCULAR: Normal. OSSEOUS STRUCTURES: No significant abnormalities. VISUALIZED UPPER ABDOMEN: Normal. OTHER FINDINGS: None. IMPRESSION: No interval acute cardiopulmonary disease appreciated. Prior medial right basilar infiltrate is resolved. Left hemidiaphragm also appears normalized currently - CT Scan/US Abdomen and Pelvis Other Rad Studies (CT/US): Read By Radiologist, Radiology Report Reviewed CT/US Interpretation: HISTORY: abdominal pain. COMPARISON: None. TECHNIQUE: Helical CT of the abdomen and pelvis was performed without oral or intravenous contrast as per referring physician request. Contrast dose: None. Radiation dose: Total exam DLP = 195.95 mGy-cm. This CT exam was performed using one or more of the following dose reduction techniques: Automated exposure control, adjustment of the mA and/or kV according to patient size, and/ or use of iterative reconstruction technique. FINDINGS: Study is compromised by lack of contrast agents as well as the lack of intraperitoneal fat the would normally separate the abdominal viscera. LOWER THORAX: Limited emphysematous changes at left base again evident. LIVER: Unremarkable. No gross lesion or ductal dilatation. GALLBLADDER AND BILE DUCTS: Unremarkable. PANCREAS: Poorly evaluated due to silhouetting by small-bowel. SPLEEN: Unremarkable. ADRENALS: Unremarkable. No mass. KIDNEYS AND URETERS: A punctate intrarenal calculus identified at the midpole right kidney. No definite obstructive uropathy bilaterally. VASCULATURE: Unremarkable. No aortic aneurysm. BOWEL: The small bowel is not well evaluated. No definite bowel obstruction is appreciated. Moderate retained fecal material seen throughout the large bowel. APPENDIX: Not identified. PERITONEUM: Hazy reticular markings are suggested throughout the mesentery could reflect infectious inflammatory or vascular etiology. LYMPH NODES: Not well evaluated. BLADDER: Mildly distended, unremarkable. REPRODUCTIVE: Uterus appears unremarkable. Adnexal compartments poorly evaluated. BONES: No acute fracture. OTHER FINDINGS: None. IMPRESSION: Suboptimal examination due lack intravenous and oral contrast well as intraperitoneal fat. No bowel obstruction or free air grossly evident. Evaluation particular volume oral in evaluation of small-bowel come pancreas and lymph nodes. Medical Decision Making Medical Decision Making: Plan: CT Abdomen and Pelvis w/o Contrast CMP Drug Screen Urine Lipase CBC CXR Two-Views Duoneb 3ml INH Protonix 40mg IVP Solu-Medrol 125mg IV NaCl IV Fluids Toradol 30mg IVP Zofran 4mg IVP 14:[address] shows constipation. Patient diagnosed with bronchitis. Patient will be discharged and is advised to follow up with an outpatient visit. Patient was instructed to return to the ED if symptoms persist or worsen. Disposition Counseled Patient/Family Regarding: Studies Performed, Diagnosis, Need For Followup, Rx Given - Disposition Referrals: [facility] [Outside] Disposition: HOME/ ROUTINE Disposition Time: 14:39 Condition: STABLE Additional Instructions: follow up with your doctor in 2 days call to make an appointment take medications as prescribed return to ER if symptoms worsens or progress Prescriptions: Albuterol HFA [Ventolin HFA 90 mcg/actuation (8 g)] 2 puff IH [id number] #1 puff Amoxicillin/Clavulanate [Augmentin 875 MG-125 MG] 1 tab PO BID #20 tab Famotidine [Pepcid] 20 mg PO BID #20 tab Naproxen [Naprosyn] 500 mg PO BID PRN #16 tab PRN Reason: Pain, Moderate (4-7) Polyethylene Glycol 3350 [Miralax] 17 g PO DAILY PRN #10 packet PRN Reason: Constipation predniSONE [predniSONE Tab] 50 mg PO DAILY #4 tab Instructions: Constipation in Adults, Acute Abdomen (Belly Pain), Adult (DC), Acute Bronchitis Forms: [facility] (Hebrew), General Discharge Instructions - Clinical Impression Clinical Impression: Constipation, Abdominal pain, Bronchitis - Scribe Statement The provider has reviewed the documentation as recorded by the Scribe (Jonnathan Lewis) Provider Attestation: All medical record entries made by the Scribe were at my direction and personally dictated by me. I have reviewed the chart and agree that the record accurately reflects my personal performance of the history, physical exam, medical decision making, and the department course for this patient. I have also personally directed, reviewed, and agree with the discharge instructions and disposition.
--- NOTE | 2017-09-16 13:53 | CT ---
PROCEDURE: CT Abdomen and Pelvis without intravenous contrast HISTORY: abdominal pain COMPARISON: None. TECHNIQUE: Helical CT of the abdomen and pelvis was performed without oral or intravenous contrast as per referring physician request. Contrast dose: None Radiation dose: Total exam DLP = 195.95 mGy-cm. This CT exam was performed using one or more of the following dose reduction techniques: Automated exposure control, adjustment of the mA and/or kV according to patient size, and/or use of iterative reconstruction technique. FINDINGS: Study is compromised by lack of contrast agents as well as the lack of intraperitoneal fat the would normally separate the abdominal viscera. LOWER THORAX: Limited emphysematous changes at left base again evident. LIVER: Unremarkable. No gross lesion or ductal dilatation. GALLBLADDER AND BILE DUCTS: Unremarkable. PANCREAS: Poorly evaluated due to silhouetting by small-bowel. SPLEEN: Unremarkable. ADRENALS: Unremarkable. No mass. KIDNEYS AND URETERS: A punctate intrarenal calculus identified at the midpole right kidney. No definite obstructive uropathy bilaterally. VASCULATURE: Unremarkable. No aortic aneurysm. BOWEL: The small bowel is not well evaluated. No definite bowel obstruction is appreciated. Moderate retained fecal material seen throughout the large bowel. APPENDIX: Not identified. PERITONEUM: Hazy reticular markings are suggested throughout the mesentery could reflect infectious inflammatory or vascular etiology. LYMPH NODES: Not well evaluated. BLADDER: Mildly distended, unremarkable. REPRODUCTIVE: Uterus appears unremarkable. Adnexal compartments poorly evaluated. BONES: No acute fracture. OTHER FINDINGS: None. IMPRESSION: Suboptimal examination due lack intravenous and oral contrast well as intraperitoneal fat. No bowel obstruction or free air grossly evident. Evaluation particular volume oral in evaluation of small-bowel come pancreas and lymph nodes.
[2017-09-16] MEDS ORDERED: Amoxicillin-Clav 875-125 mg Tab PO STA (14:22)
[2017-09-16] MEDS ORDERED: Amoxicillin-Clav 875-125 mg Tab PO ONE (14:34)
[2017-09-16 14:53] VITALS: BP 119/72; PULSE 78; TEMP 98; O2SAT 98
== END 2017-09-16 14:53 | disposition home or self-care (01) ==
LOC: C.ER 10:36
DX: J40 Bronchitis, not specified as acute or chronic (principal); K59.00 Constipation, unspecified; R10.9 Unspecified abdominal pain; F17.210 Nicotine dependence, cigarettes, uncomplicated
CPT/HCPCS: 71046; 74176; 80053; 81001; 83690; 85025; 96374; 96375; 99284; C9113; G0480; J1885; J2405; J2930; J7040

== ENCOUNTER 2017-10-06 05:57 | Emergency (ER) | payer SELFPAY ==
[2017-10-06 05:57] VITALS: BMI 24.9
[2017-10-06 06:14] VITALS: BP 111/64; PULSE 70; RESP 20; TEMP 97.7; O2SAT 99
--- NOTE | 2017-10-06 06:32 | C.PDOC ---
History Of Present Illness 37 year old female with a Hx of drug abuse presents to the ER requesting detox. Patient states she is in withdrawal, however, vital signs are stable on arrival. Denies other complaints at this time. Chief Complaint (Nursing): Medical Clearance History Per: Patient History/Exam Limitations: no limitations Onset/Duration Of Symptoms: Hrs Current Symptoms Are (Timing): Still Present Recent travel outside of the [place]: No Past Medical History Reviewed: Historical Data, Nursing Documentation, Vital Signs Vital Signs: Last Vital Signs Temp 97.7 F 10/06/17 06:09 Pulse 70 10/06/17 06:09 Resp 20 10/06/17 06:09 BP 111/64 10/06/17 06:09 Pulse Ox 99 10/06/17 06:32 - Medical History PMH: Asthma, Back Problems, Migraine Surgical History: (x3) - [facility] INTRODUCE OF OTH THERAP SUBST INTO RESP TRACT, VIA OPENING (07/04/15) Family History: States: Unknown Family Hx - Social History Hx Tobacco Use: Yes Hx Alcohol Use: No Hx Substance Use: Yes - Immunization History Hx Tetanus Toxoid Vaccination: No Hx Influenza Vaccination: No Hx Pneumococcal Vaccination: No Review Of Systems Constitutional: Negative for: Fever, Chills Cardiovascular: Negative for: Chest Pain, Palpitations Respiratory: Negative for: Cough, Shortness of Breath Gastrointestinal: Negative for: Nausea, Vomiting Psych: Negative for: Other (Tremors) Physical Exam - Physical Exam Appears: Non-toxic, No Acute Distress Skin: Normal Color, Warm, Dry Head: Atraumatic, Normacephalic Eye(s): bilateral: Normal Inspection Oral Mucosa: Moist Neck: Normal, Supple Chest: Symmetrical, No Tenderness Cardiovascular: Rhythm Regular Respiratory: Normal Breath Sounds, No Rales, No Rhonchi, No Wheezing Gastrointestinal/Abdominal: Soft, No Tenderness Extremity: Normal ROM (x4) Neurological/Psych: Oriented x3, Normal Speech, Other (No focal deficits, no tremors noted) ED Course And Treatment O2 Sat by Pulse Oximetry: 99 (room air) Pulse Ox Interpretation: Normal Progress Note: Patient seen by youth support worker and given list of other available detox site in the area. Disposition - Disposition Referrals: [facility] [Outside] Disposition: HOME/ ROUTINE Disposition Time: 06:31 Condition: STABLE Instructions: Drug Abuse and Drug Addiction (DC) Forms: [facility] (Ethiopian) - POA Present On Arrival: None - Clinical Impression Clinical Impression: Opioid abuse with opioid-induced disorder - Scribe Statement The provider has reviewed the documentation as recorded by the Scribmiguel ángel Feliciano All medical record entries made by the Scribe were at my direction and personally dictated by me. I have reviewed the chart and agree that the record accurately reflects my personal performance of the history, physical exam, medical decision making, and the department course for this patient. I have also personally directed, reviewed, and agree with the discharge instructions and disposition.
== END 2017-10-06 07:01 | disposition home or self-care (01) ==
LOC: C.ER 05:57
DX: F11.19 Opioid abuse with unspecified opioid-induced disorder (principal); Z72.0 Tobacco use

== ENCOUNTER 2017-11-04 21:17 | Inpatient (IN) | payer MEDICAID, OTHER ==
[2017-11-04 21:18] VITALS: BMI 24.9
[2017-11-04] MEDS ORDERED: Sodium Chloride 0.9% 1,000 ML IV ONE (21:50)
[2017-11-04] MEDS ORDERED: Albuterol-Ipratrop 3 mg / 0.5 (3 ml) UD INH STA ×3 (21:50→21:51)
[2017-11-04] MEDS ORDERED: MethylPREDNISolone 40 mg Vial IVP STA (21:50)
--- NOTE | 2017-11-04 21:54 | C.PDOC ---
History Of Present Illness 27 year old female with PMHx of substance abuse, asthma, migraines presents to the ED c/o asthma exacerbation for the past few days associated with a fever. Patient also c/o headache that is typical with her migraines she reports. Patient denies nausea, vomit, diarrhea, rash, weakness, numbness, visual changes. Time Seen by Provider: 11/04/17 21:45 Chief Complaint (Nursing): Fever History Per: Patient History/Exam Limitations: no limitations Onset/Duration Of Symptoms: Days Current Symptoms Are (Timing): Still Present Location Of Pain: Headache Sick Contacts (Context): None Ear Symptoms: Bilateral: None Recent travel outside of the [place]: No Additional History Per: Patient Past Medical History Reviewed: Historical Data, Nursing Documentation, Vital Signs Vital Signs: Last Vital Signs Temp 98.1 F 11/05/17 00:08 Pulse 87 11/05/17 00:08 Resp 14 11/05/17 00:08 BP 142/78 11/05/17 00:08 Pulse Ox 94 L 11/05/17 00:47 - Medical History PMH: Asthma, Back Problems, Migraine Denies: Chronic Kidney Disease Surgical History: (x3) - [facility] INTRODUCE OF OTH THERAP SUBST INTO RESP TRACT, VIA OPENING (07/04/15) Family History: States: Unknown Family Hx - Social History Hx Tobacco Use: Yes Hx Alcohol Use: No Hx Substance Use: No - Immunization History Hx Tetanus Toxoid Vaccination: No Hx Influenza Vaccination: No Hx Pneumococcal Vaccination: No Review Of Systems Except As Marked, All Systems Reviewed And Found Negative. Constitutional: Positive for: Fever Neurological: Positive for: Headache Physical Exam - Physical Exam Appears: Non-toxic, No Acute Distress Skin: Normal Color, Warm, Dry Head: Atraumatic, Normacephalic Eye(s): bilateral: Normal Inspection, PERRL, EOMI Ear(s): Bilateral: Normal Oral Mucosa: Moist Throat: Normal, No Erythema, No Exudate Neck: Normal ROM, Supple Chest: Symmetrical Cardiovascular: Rhythm Regular Respiratory: No Rales, No Rhonchi, Wheezing (diffuse) Gastrointestinal/Abdominal: Soft, No Tenderness, No Guarding, No Rebound Extremity: Normal ROM, No Tenderness, No Swelling Neurological/Psych: Oriented x3, Normal Speech Gait: Steady ED Course And Treatment - Laboratory Results Result Diagrams: 11/04/17 22:24 07/14/18 22:24 O2 Sat by Pulse Oximetry: 94 Medical Decision Making Medical Decision Making: Plan: * Labs * CXR * nebulizer treatment X3 * solumedrol 125 mg IVP * IV fluids * Urine culture * UA asthma/migrani. no thunderclap features cxr with rll infiltrate. noted leukoctyosis. antibiotics ordered. persistent wheezign. accepted by dr gan. Disposition - Disposition Disposition: HOSPITALIZED Disposition Time: 12:00 Condition: FAIR - Clinical Impression Clinical Impression: Pneumonia, Asthma - Scribe Statement The provider has reviewed the documentation as recorded by the Scribe Semaj Gutierrez All medical record entries made by the Scribe were at my direction and personally dictated by me. I have reviewed the chart and agree that the record accurately reflects my personal performance of the history, physical exam, medical decision making, and the department course for this patient. I have also personally directed, reviewed, and agree with the discharge instructions and disposition. Decision To Admit - Pt Status Changed To: Hospital Disposition Of: Inpatient - Admit Certification Admit to Inpatient:: After my assessment, the patient will require hospitalization for at least two midnights. This is because of the severity of symptoms shown, intensity of services needed, and/or the medical risk in this patient being treated as an outpatient. - InPatient: Physician Admission Certification:: asthma douglas simmons. - . Bed Request Type: Telemetry Admitting Physician: Karl Gan Patient Diagnosis: Pneumonia, Asthma
[2017-11-04] MEDS ORDERED: Azithromycin 500 MG in Sodium Chloride 0.9% 250 ML IVPB STA (22:00)
[2017-11-04 22:18] LABS: VENOUS BLOOD GAS BASE EXCESS -3.1 mmol/L (0.0-2.0); VENOUS BLOOD GAS PCO2 35 mmHg (40-60); VENOUS BLOOD GAS PO2 44 mm/Hg (30-55); VENOUS BLOOD PH 7.39 (7.32-7.43)
[2017-11-04 22:26] LABS: BASO # 0.1 K/uL (0.0-0.2); BASO % 0.4 % (0.0-2.0); EOS # 0.1 K/uL (0.0-0.7); EOS % 0.5 % (0.0-4.0); HEMOGLOBIN 11.6 g/dL (11.0-16.0); LYMPH # 2.5 K/uL (1.0-4.3); LYMPH % 10.8 % (20.0-40.0); MEAN CELL VOLUME 80.4 fL (81.0-99.0); MEAN CORPUSCULAR HEMOGLOBIN 26.2 pg (27.0-31.0); MEAN CORPUSCULAR HGB CONC 32.7 g/dL (33.0-37.0); MEAN PLATELET VOLUME 8.7 fL (7.2-11.7); MONO % 8.5 % (0.0-10.0); NEUT # 18.6 K/uL (1.8-7.0); NEUT % 79.8 % (50.0-75.0); RBC 4.42 Mil/uL (3.80-5.20); RED CELL DISTRIBUTION WIDTH 13.8 % (11.5-14.5); WHITE BLOOD COUNT 23.2 K/uL (4.8-10.8)
[2017-11-04] MEDS ORDERED: cefTRIAXone IV 1 gm in Dextros 50 ML IVPB ONE (22:31)
[2017-11-04 22:34] LABS: INR 1.5; PROTHROMBIN TIME 16.4 SECONDS (9.7-12.2)
[2017-11-04 22:40] LABS: ALB/GLOB RATIO 1.3 (1.0-2.1); ALBUMIN 4.4 g/dL (3.5-5.0); ALT/SGPT 29 U/L (9-52); AST/SGOT 22 U/L (14-36); BLOOD UREA NITROGEN 11 mg/dL (7-17); CALCIUM 8.8 mg/dl (8.6-10.4); GFR AFRICAN-AMERICAN > 60; GFR NON-AFRICAN AMERICAN > 60
[2017-11-05] MEDS ORDERED: Albuterol-Ipratrop 3 mg / 0.5 (3 ml) UD INH PRN (02:00)
--- NOTE | 2017-11-05 02:18 | CP.PCM.HP ---
<Alon Ortega - Last Filed: 11/05/17 04:28> History of Present Illness - History of Present Illness History of Present Illness: PGY-[address] Galindo service CC: "SOB and Rt side pain" Patient is a 37 yo F with a Pmhx of Asthma that came into ED for shortness of breath, sharp chest and right side rib pain that started two days ago. Patient states had a hard breathing when walking. Patient states she is coughing with great amounts of yellow sputum. Patient describes that she wakes up in the middle of the night gasping for air. Patient states nothing has made her symptoms better. Patient said all her symptoms worsened today. Patient says she has a pounding headache and feels dizzy. Patient states she has ran out of her albuterol and steroid medication, and used to take it when she needed it. Patient admits to subjective fever, sore throat, constipation and back pain. She admits to losing 15 pounds. Patient denies diaphoresis, changes in vision, palpitations, abdominal pain, Nausea, vomiting, dysuria, rashes. She denies recent travel. Patient is sleepy during encounter, and often falls sleep during history taking. PMD: none Allergies: denies Pmhx: Asthma, back pain, migraines PShx: C-sections x2 Fmhx: asthma (brother) SHx: Patient smokes 1/2 pack a day. Patient denies alcohol or drug use. Patient lives with Home meds: Albuterol, steroids. Present on Admission - Present on Admission Any Indicators Present on Admission: No Review of Systems - Constitutional Constitutional: Excessive Sweating, Fatigue, Fever, Headache, Weight Loss, Weakness. absent: Chills - EENT Eyes: absent: Change in Vision Nose/Mouth/Throat: Sore Throat. absent: Neck Pain - Cardiovascular Cardiovascular: Chest Pain, Dyspnea. absent: Edema, Lightheadedness, Palpitations, Rapid Heart Rate - Respiratory Respiratory: Cough, Pain on Inspiration Additional comments: Pain on inspiration on lateral right side of chest. Cough with yellow phlegm - Gastrointestinal Gastrointestinal: Constipation. absent: Abdominal Pain, Diarrhea, Nausea - Genitourinary Genitourinary: absent: Difficulty Urinating, Dysuria, Urinary Frequency - Musculoskeletal Musculoskeletal: Back Pain - Integumentary Integumentary: absent: Rash - Neurological Neurological: Headaches - Psychiatric Psychiatric: Anxiety - Endocrine Endocrine: Fatigue. absent: Excessive Sweating - Hematologic/Lymphatic Hematologic: absent: Easy Bleeding, Easy Bruising Past Patient History - Infectious Disease Hx of Infectious Diseases: None - Tetanus Immunizations Tetanus Immunization: Unknown - Past Medical History & Family History Past Medical History?: Yes - Past Social History Smoking Status: Light Smoker < 10 Cigarettes Daily - CARDIAC Hx Cardiac Disorders: No - PULMONARY Hx Asthma: Yes - NEUROLOGICAL Hx Migraine: Yes - HEENT Hx HEENT Problems: No - RENAL Hx Chronic Kidney Disease: No - ENDOCRINE/METABOLIC Hx Endocrine Disorders: No - HEMATOLOGICAL/ONCOLOGICAL Hx Blood Disorders: No - INTEGUMENTARY Hx Dermatological Problems: No - MUSCULOSKELETAL/RHEUMATOLOGICAL Hx Musculoskeletal Disorders: Yes Hx Falls: No - GASTROINTESTINAL Hx Gastrointestinal Disorders: No - GENITOURINARY/GYNECOLOGICAL Hx Genitourinary Disorders: No - PSYCHIATRIC Hx Substance Use: No - SURGICAL HISTORY Hx Surgeries: Yes Hx Section: Yes (x2) - ANESTHESIA Hx Anesthesia: Yes Hx Anesthesia Reactions: No Hx Malignant Hyperthermia: No Meds Allergies/Adverse Reactions: Allergies Allergy/AdvReac Type Severity Reaction Status Date / Time diphenhydramine HCl Allergy Mild RASH Verified 09/16/17 10:41 [From Benadryl] codeine Allergy RASH Verified 09/16/17 10:41 seafood Allergy SWELLING Uncoded 04/14/17 15:07 Physical Exam - Constitutional Appears: No Acute Distress - Head Exam Head Exam: ATRAUMATIC, NORMAL INSPECTION - Eye Exam Eye Exam: EOMI, Normal appearance, PERRL Pupil Exam: Miosis - ENT Exam ENT Exam: Mucous Membranes Moist, Normal Exam, Normal Oropharynx - Neck Exam Neck exam: Positive for: Normal Inspection - Respiratory Exam Respiratory Exam: Decreased Breath Sounds. absent: Rales, Rhonchi, Wheezes - Cardiovascular Exam Cardiovascular Exam: Tachycardia, +S1, +S2 - GI/Abdominal Exam GI & Abdominal Exam: Normal Bowel Sounds, Soft. absent: Diminished Bowel Sounds , Distended, Firm, Guarding, Tenderness - Extremities Exam Extremities exam: Positive for: normal inspection. Negative for: joint swelling , pedal edema, tenderness - Skin Skin Exam: Dry, Intact Results - Vital Signs Recent Vital Signs: Last Vital Signs Temp 98.1 F 11/05/17 00:08 Pulse 87 11/05/17 00:08 Resp 14 11/05/17 00:08 BP 142/78 11/05/17 00:08 Pulse Ox 94 L 11/05/17 00:48 - Labs Result Diagrams: 11/04/17 22:24 11/04/17 22:24 Labs: Laboratory Results - last 24 hr 11/04/17 11/04/17 11/04/17 22:11 22:24 22:24 WBC 23.2 H D RBC 4.42 Hgb 11.6 Hct 35.5 MCV 80.4 L D MCH 26.2 L MCHC 32.7 L RDW 13.8 Plt Count 350 D MPV 8.7 Neut % (Auto) 79.8 H Lymph % (Auto) 10.8 L Dolores % (Auto) 8.5 Eos % (Auto) 0.5 Baso % (Auto) 0.4 Neut # (Auto) 18.6 H Lymph # (Auto) 2.5 Dolores # (Auto) 2.0 H Eos # (Auto) 0.1 Baso # (Auto) 0.1 PT 16.4 H INR 1.5 APTT 33 pO2 44 VBG pH 7.39 VBG pCO2 35 L VBG HCO3 22.0 VBG Total CO2 22.3 VBG O2 Sat (Calc) 87.1 H VBG Base Excess -3.1 L VBG Potassium 2.1 L* Sodium 143.0 Chloride 113.0 H Glucose 90 Lactate 0.9 Crit Value Called To Dr de la cruz Crit Value Called By Ga.rt Crit Value Read Back Y Blood Gas Notified Time 2218 Potassium Carbon Dioxide Anion Gap BUN Creatinine Est GFR ( Amer) Est GFR (Non-Af Amer) Random Glucose Calcium Total Bilirubin AST ALT Alkaline Phosphatase Total Protein Albumin Globulin Albumin/Globulin Ratio Beta HCG, Quant Venous Blood Potassium 2.1 L* 11/04/17 11/04/17 22:24 22:55 WBC RBC Hgb Hct MCV MCH MCHC RDW Plt Count MPV Neut % (Auto) Lymph % (Auto) Dolores % (Auto) Eos % (Auto) Baso % (Auto) Neut # (Auto) Lymph # (Auto) Dolores # (Auto) Eos # (Auto) Baso # (Auto) PT INR APTT pO2 VBG pH VBG pCO2 VBG HCO3 VBG Total CO2 VBG O2 Sat (Calc) VBG Base Excess VBG Potassium Sodium 136 Chloride 96 L Glucose Lactate Crit Value Called To Crit Value Called By Crit Value Read Back Blood Gas Notified Time Potassium 3.6 Carbon Dioxide 31 H Anion Gap 13 BUN 11 Creatinine 0.6 L Est GFR ( Amer) > 60 Est GFR (Non-Af Amer) > 60 Random Glucose 131 H Calcium 8.8 Total Bilirubin 0.7 AST 22 ALT 29 Alkaline Phosphatase 105 Total Protein 7.7 Albumin 4.4 Globulin 3.4 Albumin/Globulin Ratio 1.3 Beta HCG, Quant < 2.39 Venous Blood Potassium Assessment & Plan - Assessment and Plan (Free Text) Plan: Pneumonia * Previous hospitalization for Community Acquired Pneumonia 04/14/17 * 11/04 CXR: inflitrate on right lower lung field. F/U official report * Temperature on admission: 102.7 F * 11/04: WBC 23.2 * in ED: given Azythromycin 500mg IVPB stat, Ceftriaxone 1gm IVPB stat * F/U Blood culture and sensitivities * F/U urine cultures * F/U U/A * Meds: Ceftriaxone (Rocephin) 1gm IV Q daily, Doxycycline 100mg PO BID * Consider ID consult Asthma Exarcerbation * O2 sat 97 RA * 11/04 V Blood Gas: pO2 44, PH7.39, PCO2 35, HCO3 22.0, CO2 22.3 * F/U Chest Xray * in ED received: Methylprednisolone 125 mg IVP STAT, Duonebs 3ml INH STAT * Meds: Duonebs 3ml INH Q6 PRN, Budesonide 0.5mg INH Q12 * Consider Pulm consult Weight loss * R/O HIV: F/U HIV 1 and 2 antigen * F/U TSH * F/U Iron Panel/TIBC * Multivitamins 1 tab PO Qdaily * Regular diet Prophylaxis * DVT prophylaxis: 5000 U SC Q12 * GI Prophylaxis: Protonix 40mg PO Qdaily <Karl Galindo P - Last Filed: 11/05/17 07:31> Results - Vital Signs Recent Vital Signs: Last Vital Signs Temp 98.1 F 11/05/17 00:08 Pulse 87 11/05/17 00:08 Resp 14 11/05/17 00:08 BP 142/78 11/05/17 00:08 Pulse Ox 94 L 11/05/17 00:48 - Labs Result Diagrams: 11/04/17 22:24 11/04/17 22:24 Labs: Laboratory Results - last 24 hr 11/04/17 11/04/17 11/04/17 22:11 22:24 22:24 WBC 23.2 H D RBC 4.42 Hgb 11.6 Hct 35.5 MCV 80.4 L D MCH 26.2 L MCHC 32.7 L RDW 13.8 Plt Count 350 D MPV 8.7 Neut % (Auto) 79.8 H Lymph % (Auto) 10.8 L Dolores % (Auto) 8.5 Eos % (Auto) 0.5 Baso % (Auto) 0.4 Neut # (Auto) 18.6 H Lymph # (Auto) 2.5 Dolores # (Auto) 2.0 H Eos # (Auto) 0.1 Baso # (Auto) 0.1 PT 16.4 H INR 1.5 APTT 33 pO2 44 VBG pH 7.39 VBG pCO2 35 L VBG HCO3 22.0 VBG Total CO2 22.3 VBG O2 Sat (Calc) 87.1 H VBG Base Excess -3.1 L VBG Potassium 2.1 L* Sodium 143.0 Chloride 113.0 H Glucose 90 Lactate 0.9 Crit Value Called To Dr de la cruz Crit Value Called By Ga.rt Crit Value Read Back Y Blood Gas Notified Time 2218 Potassium Carbon Dioxide Anion Gap BUN Creatinine Est GFR ( Amer) Est GFR (Non-Af Amer) Random Glucose Calcium Total Bilirubin AST ALT Alkaline Phosphatase Total Protein Albumin Globulin Albumin/Globulin Ratio Beta HCG, Quant Venous Blood Potassium 2.1 L* 11/04/17 11/04/17 22:24 22:55 WBC RBC Hgb Hct MCV MCH MCHC RDW Plt Count MPV Neut % (Auto) Lymph % (Auto) Dolores % (Auto) Eos % (Auto) Baso % (Auto) Neut # (Auto) Lymph # (Auto) Dolores # (Auto) Eos # (Auto) Baso # (Auto) PT INR APTT pO2 VBG pH VBG pCO2 VBG HCO3 VBG Total CO2 VBG O2 Sat (Calc) VBG Base Excess VBG Potassium Sodium 136 Chloride 96 L Glucose Lactate Crit Value Called To Crit Value Called By Crit Value Read Back Blood Gas Notified Time Potassium 3.6 Carbon Dioxide 31 H Anion Gap 13 BUN 11 Creatinine 0.6 L Est GFR ( Amer) > 60 Est GFR (Non-Af Amer) > 60 Random Glucose 131 H Calcium 8.8 Total Bilirubin 0.7 AST 22 ALT 29 Alkaline Phosphatase 105 Total Protein 7.7 Albumin 4.4 Globulin 3.4 Albumin/Globulin Ratio 1.3 Beta HCG, Quant < 2.39 Venous Blood Potassium Attending/Attestation - Attestation I have personally seen and examined this patient.: Yes I have fully participated in the care of the patient.: Yes I have reviewed all pertinent clinical information: Yes Notes (Text): 11/05/17 07:30 PNA, rll Asthma exacerbation Tobacco abuse Weight loss, malnutrition, low MCV Plan Rocephin, doxy PRN nebs, inhaled steroid MVT Counselled tobacco cessation TSH, IRON Gi/DVt prophylaxis.
[2017-11-05] MEDS ORDERED: Budesonide 0.5 mg/2 ml Inhal Susp UD INH SCH (08:00)
--- NOTE | 2017-11-05 08:02 | CP.PCM.PN ---
<AntonioMatt M - Last Filed: 11/05/17 14:42> Subjective - Date & Time of Evaluation Date of Evaluation: 11/05/17 Time of Evaluation: 09:20 - Subjective Subjective: PGY [address] Steinberg. Patient seen and examined at bedside. Patient lying in bed comfortably, no acute distress. Patient states her breathing has improved since admission, but still has chills and some difficulty breathing. Patient denies chest pain, trouble voiding, abdominal pain, constipation, diarrhea, nausea, vomiting. Patient states she has been sad for the past few weeks since her father . Patient denies any suicidal idealization. Objective - Vital Signs/Intake and Output Vital Signs (last 24 hours): Temp Pulse Resp BP Pulse Ox 98.1 F 87 14 142/78 94 L 11/05/17 00:08 11/05/17 00:08 11/05/17 00:08 11/05/17 00:08 11/05/17 00:48 - Medications Medications: Current Medications Acetaminophen (Tylenol 325mg Tab) 650 mg PO Q6 PRN PRN Reason: fever, pain Albuterol/Ipratropium (Duoneb 3 Mg/0.5 Mg (3 Ml) Ud) 3 ml INH RQ6 PRN PRN Reason: asthma Budesonide (Pulmicort Respules) 0.5 mg INH RQ12 KIT Doxycycline Hyclate (Doryx) 100 mg PO Q12H KIT PRN Reason: Protocol Last Admin: 11/05/17 03:07 Dose: 100 mg Heparin Sodium (Porcine) (Heparin) 5,000 units SC Q12 KIT Ceftriaxone Sodium 1 gm/ (Sodium Chloride) 100 mls @ 100 mls/hr IVPB Q24H KIT PRN Reason: Protocol Multivitamins (Hexavitamin) 1 tab PO DAILY KIT Pantoprazole Sodium (Protonix Ec Tab) 40 mg PO DAILY KIT Pneumococcal Polyvalent Vaccine (Pneumovax 23 Vaccine) 0.5 ml IM .ONCE ONE Stop: 11/07/17 14:01 - Labs Labs: 11/04/17 22:24 11/04/17 22:24 PT 16.4 SECONDS (9.7-12.2) H 11/04/17 22:24 INR 1.5 11/04/17 22:24 APTT 33 SECONDS (21-34) 11/04/17 22:24 - Constitutional Appears: Non-toxic, No Acute Distress - Head Exam Head Exam: ATRAUMATIC, NORMAL INSPECTION, NORMOCEPHALIC - Eye Exam Eye Exam: EOMI, Normal appearance - ENT Exam ENT Exam: Mucous Membranes Moist - Respiratory Exam Respiratory Exam: Decreased Breath Sounds, Rales, Wheezes. absent: Rhonchi - Cardiovascular Exam Cardiovascular Exam: +S1, +S2. absent: Irregular Rhythm, Murmur - GI/Abdominal Exam GI & Abdominal Exam: Soft, Normal Bowel Sounds. absent: Distended, Firm, Guarding, Rigid, Tenderness - Extremities Exam Extremities Exam: Full ROM, Normal Capillary Refill, Normal Inspection. absent : Calf Tenderness, Pedal Edema, Tenderness - Back Exam Back Exam: absent: CVA tenderness (L), CVA tenderness (R) - Neurological Exam Neurological Exam: Alert, Awake, Oriented x3 - Psychiatric Exam Psychiatric exam: Normal Affect, Normal Mood - Skin Skin Exam: Dry, Intact, Normal Color, Warm Assessment and Plan - Assessment and Plan (Free Text) Assessment: 37 year F w/ PMHx of Asthma presents to ED for SOB: 1) Pneumonia - Previous hospitalization for Community Acquired Pneumonia 04/14/17 - 11/04 Xray " Dense consolidative opacification seen within the right infrahilar region suggestive for possible infiltrate. Posttreatment interval followup is recommended to ensure resolution and exclude underlying lesion. Few scattered nodular densities in the right upper and left lower lung zones. Diffuse increased interstitial lung markings. Right hilar prominence." - Patient afebrile since admission (since 11/04 @ 11P) - WBC downtrending 23.2 -> 20.8 - F/U Blood culture and sensitivities from 11/04 - F/U urine cultures from 11/04 - F/U U/A from, 11/04 - Ceftriaxone (Rocephin) 1gm IV Q daily, Doxycycline 100mg PO BID - Consider CT Chest 11/06 if no improvement 2) Asthma Exarcerbation - DUNEBS Q6H - Robitussin Q4 PRN 3) Weight loss - HIV 1 & 2 Ab screen neg. - TSH 0.06, but Free T4 1.45 - Iron low at 12 but hemoglobin w/ in normal range - Multivitamins 1 tab PO Qdaily - Regular diet 4) Prophylaxis - DVT prophylaxis: 5000 U SC Q12 - GI Prophylaxis: Protonix 40mg PO Qdaily <Myranda Steinberg - Last Filed: 11/07/17 13:45> Objective - Vital Signs/Intake and Output Vital Signs (last 24 hours): Temp Pulse Resp BP Pulse Ox 97.7 F 87 20 100/63 96 11/05/17 09:02 11/05/17 13:22 11/05/17 09:02 11/05/17 09:02 11/05/17 09:02 - Labs Labs: 11/05/17 08:11 11/05/17 08:11 PT 16.4 SECONDS (9.7-12.2) H 11/04/17 22:24 INR 1.5 11/04/17 22:24 APTT 33 SECONDS (21-34) 11/04/17 22:24 Attending/Attestation - Attestation I have personally seen and examined this patient.: Yes I have fully participated in the care of the patient.: Yes I have reviewed all pertinent clinical information, including history, physical exam and plan: Yes Notes (Text): Patient was seen and examined with the resident has cough and fever On examination cachetic female with bilateral wheezing and rales on examination has fever and leukocytosis Assessment and the plan discussed with the resident patient was told about her infection/pneumonia and need for work up for weight loss I agree with the resident's assessment and the plan
[2017-11-05 08:24] LABS: BASO % 0.2 % (0.0-2.0); HEMOGLOBIN 11.5 g/dL (11.0-16.0); LYMPH # 0.9 K/uL (1.0-4.3); LYMPH % 4.4 % (20.0-40.0); MEAN CELL VOLUME 81.8 fL (81.0-99.0); MEAN CORPUSCULAR HEMOGLOBIN 26.7 pg (27.0-31.0); MEAN CORPUSCULAR HGB CONC 32.7 g/dL (33.0-37.0); MEAN PLATELET VOLUME 9.3 fL (7.2-11.7); MONO # 0.4 K/uL (0.0-0.8); MONO % 2.1 % (0.0-10.0); NEUT # 19.4 K/uL (1.8-7.0); NEUT % 93.3 % (50.0-75.0); PLATELET COUNT 285 K/uL (130-400); RBC 4.31 Mil/uL (3.80-5.20); RED CELL DISTRIBUTION WIDTH 14.3 % (11.5-14.5); WHITE BLOOD COUNT 20.8 K/uL (4.8-10.8)
[2017-11-05 08:34] LABS: IRON 12 ug/dL (37-170)
--- NOTE | 2017-11-05 08:41 | RAD ---
Chest x-ray two views History: Shortness of breath. Comparison: 09/16/2017 Findings: Dense consolidative opacification seen within the right infrahilar region suggestive for possible infiltrate. Posttreatment interval followup is recommended to ensure resolution and exclude underlying lesion. Few scattered nodular densities in the right upper and left lower lung zones. Diffuse increased interstitial lung markings. Right hilar prominence. Tortuous aorta. Top normal heart. Upper lobe granulomatous changes. Degenerative changes in the spine. Impression: Dense consolidative opacification seen within the right infrahilar region suggestive for possible infiltrate. Posttreatment interval followup is recommended to ensure resolution and exclude underlying lesion. Few scattered nodular densities in the right upper and left lower lung zones. Diffuse increased interstitial lung markings. Right hilar prominence.
[2017-11-05 08:44] LABS: % IRON SATURATION 5 (20-55); TOTAL IRON BINDING CAPACITY 236 ug/dL (250-450)
[2017-11-05 09:03] VITALS: BP 100/63; RESP 20; TEMP 97.7; O2SAT 96
[2017-11-05 09:06] LABS: LYMPHOCYTE 5 % (20-40); MONOCYTE 2 % (0-10); NEUTROPHIL 93 % (50-75); PLATELET ESTIMATE NORMAL (NORMAL); TOTAL CELLS COUNTED 100
[2017-11-05 09:07] LABS: HYPOCHROMIC SLIGHT; POLYCHROMIC SLIGHT
[2017-11-05 09:16] LABS: HIV 1&2 ANTIBODY NEGATIVE (NEGATIVE)
[2017-11-05] MEDS ORDERED: Pantoprazole 40 mg EC Tab PO SCH (10:00)
[2017-11-05] MEDS ORDERED: Multiple Vitamins Tab PO SCH (10:00)
[2017-11-05 10:29] LABS: BLOOD UREA NITROGEN 9 mg/dL (7-17); CALCIUM 9.2 mg/dl (8.6-10.4); GFR AFRICAN-AMERICAN > 60; GFR NON-AFRICAN AMERICAN > 60
[2017-11-05] MEDS ORDERED: Albuterol-Ipratrop 3 mg / 0.5 (3 ml) UD INH STA (12:51)
[2017-11-05 13:24] VITALS: PULSE 87
[2017-11-05] MEDS ORDERED: Albuterol-Ipratrop 3 mg / 0.5 (3 ml) UD INH SCH (14:00)
[2017-11-05] MEDS ORDERED: guaiFENesin DM 200 mg-20 mg/10 ml UD PO PRN (14:27)
[2017-11-05 14:31] LABS: BARBITURATES, UR NEGATIVE (NEGATIVE); PHENCYCLIDINE, UR NEGATIVE (NEGATIVE)
[2017-11-05 14:59] LABS: BENZODIAZEPINES, UR POSITIVE (NEGATIVE); OPIATES, UR POSITIVE (NEGATIVE)
--- NOTE | 2017-11-05 17:32 | CP.PCM.DIS ---
<AntonioMatt M - Last Filed: 11/05/17 17:51> Provider - Provider Date of Admission: 11/04/17 22:52 Attending physician: Karl Galindo MD Primary care physician: None Time Spent in preparation of Discharge (in minutes): 40 Diagnosis - Discharge Diagnosis (1) Pneumonia Status: Acute Comment: Patient was being treated w/ Abx Doxycyclin & Ceftriaxone (2) Asthma exacerbation Status: Acute Comment: Patient was receiving Duoneb treatment. (3) Weight loss Status: Acute Comment: Unable to work up as patient eloped. Hospital Course - Lab Results Lab Results: Most Recent Lab Values WBC 20.8 K/uL (4.8-10.8) H 11/05/17 08:11 RBC 4.31 Mil/uL (3.80-5.20) 11/05/17 08:11 Hgb 11.5 g/dL (11.0-16.0) 11/05/17 08:11 Hct 35.3 % (34.0-47.0) 11/05/17 08:11 MCV 81.8 fL (81.0-99.0) 11/05/17 08:11 MCH 26.7 pg (27.0-31.0) L 11/05/17 08:11 MCHC 32.7 g/dL (33.0-37.0) L 11/05/17 08:11 RDW 14.3 % (11.5-14.5) 11/05/17 08:11 Plt Count 285 K/uL (130-400) 11/05/17 08:11 MPV 9.3 fL (7.2-11.7) 11/05/17 08:11 Neut % (Auto) 93.3 % (50.0-75.0) H 11/05/17 08:11 Lymph % (Auto) 4.4 % (20.0-40.0) L 11/05/17 08:11 Mower % (Auto) 2.1 % (0.0-10.0) 11/05/17 08:11 Eos % (Auto) 0.0 % (0.0-4.0) 11/05/17 08:11 Baso % (Auto) 0.2 % (0.0-2.0) 11/05/17 08:11 Neut # (Auto) 19.4 K/uL (1.8-7.0) H 11/05/17 08:11 Lymph # (Auto) 0.9 K/uL (1.0-4.3) L 11/05/17 08:11 Mower # (Auto) 0.4 K/uL (0.0-0.8) 11/05/17 08:11 Eos # (Auto) 0.0 K/uL (0.0-0.7) 11/05/17 08:11 Baso # (Auto) 0.0 K/uL (0.0-0.2) 11/05/17 08:11 Neutrophils % (Manual) 93 % (50-75) H 11/05/17 08:11 Lymphocytes % (Manual) 5 % (20-40) L 11/05/17 08:11 Monocytes % (Manual) 2 % (0-10) 11/05/17 08:11 Platelet Estimate Normal (NORMAL) 11/05/17 08:11 Polychromasia Slight 11/05/17 08:11 Hypochromasia (manual) Slight 11/05/17 08:11 PT 16.4 SECONDS (9.7-12.2) H 11/04/17 22:24 INR 1.5 11/04/17 22:24 APTT 33 SECONDS (21-34) 11/04/17 22:24 pO2 44 mm/Hg (30-55) 11/04/17 22:11 VBG pH 7.39 (7.32-7.43) 11/04/17 22:11 VBG pCO2 35 mmHg (40-60) L 11/04/17 22:11 VBG HCO3 22.0 mmol/L 11/04/17 22:11 VBG Total CO2 22.3 mmol/L (22-28) 11/04/17 22:11 VBG O2 Sat (Calc) 87.1 % (40-65) H 11/04/17 22:11 VBG Base Excess -3.1 mmol/L (0.0-2.0) L 11/04/17 22:11 VBG Potassium 2.1 mmol/L (3.6-5.2) L* 11/04/17 22:11 Sodium 143.0 mmol/l (132-148) 11/04/17 22:11 Chloride 113.0 mmol/L (98-107) H 11/04/17 22:11 Glucose 90 mg/dl (65-105) 11/04/17 22:11 Lactate 0.9 mmol/L (0.7-2.1) 11/04/17 22:11 Crit Value Called To Dr de la cruz 11/04/17 22:11 Crit Value Called By [email or web address] 11/04/17 22:11 Crit Value Read Back Y 11/04/17 22:11 Blood Gas Notified Time 221711/04/17 22:11 Sodium 137 mmol/L (132-148) 11/05/17 08:11 Potassium 4.4 mmol/L (3.6-5.2) 11/05/17 08:11 Chloride 100 mmol/L (98-107) 11/05/17 08:11 Carbon Dioxide 25 mmol/L (22-30) 11/05/17 08:11 Anion Gap 16 (10-20) 11/05/17 08:11 BUN 9 mg/dL (7-17) 11/05/17 08:11 Creatinine 0.4 mg/dL (0.7-1.2) L 11/05/17 08:11 Est GFR ( Amer) > 60 11/05/17 08:11 Est GFR (Non-Af Amer) > 60 11/05/17 08:11 Random Glucose 224 mg/dL (65-105) H 11/05/17 08:11 Calcium 9.2 mg/dl (8.6-10.4) 11/05/17 08:11 Iron 12 ug/dL (37-170) L 11/05/17 08:11 TIBC 236 ug/dL (250-450) L 11/05/17 08:11 % Saturation 5 (20-55) L 11/05/17 08:11 Total Bilirubin 0.7 mg/dL (0.2-1.3) 11/04/17 22:24 AST 22 U/L (14-36) 11/04/17 22:24 ALT 29 U/L (9-52) 11/04/17 22:24 Alkaline Phosphatase 105 U/L (38-126) 11/04/17 22:24 Total Protein 7.7 g/dL (6.3-8.3) 11/04/17 22:24 Albumin 4.4 g/dL (3.5-5.0) 11/04/17 22:24 Globulin 3.4 gm/dL (2.2-3.9) 11/04/17 22:24 Albumin/Globulin Ratio 1.3 (1.0-2.1) 11/04/17 22:24 Free T4 1.45 ng/dL (0.78-2.19) 11/05/17 07:12 TSH 3rd Generation 0.06 mIU/L (0.46-4.68) L 11/05/17 08:11 Beta HCG, Quant < 2.39 mIU/ML 11/04/17 22:55 Venous Blood Potassium 2.1 mmol/L (3.6-5.2) L* 11/04/17 22:11 Urine Opiates Screen Positive (NEGATIVE) H 11/05/17 13:33 Urine Methadone Screen Negative (NEGATIVE) 11/05/17 13:33 Ur Barbiturates Screen Negative (NEGATIVE) 11/05/17 13:33 Ur Phencyclidine Scrn Negative (NEGATIVE) 11/05/17 13:33 Ur Amphetamines Screen Negative (NEGATIVE) 11/05/17 13:33 U Benzodiazepines Scrn Positive (NEGATIVE) 11/05/17 13:33 U Oth Cocaine Metabols Negative (NEGATIVE) 11/05/17 13:33 U Cannabinoids Screen Negative (NEGATIVE) 11/05/17 13:33 HIV 1&2 Antibody Screen Negative (NEGATIVE) 11/05/17 08:11 - Hospital Course Hospital Course: HPI: Patient is a 37 yo F with a Pmhx of Asthma that came into ED for shortness of breath, sharp chest and right side rib pain that started two days ago. Patient states had a hard breathing when walking. Patient states she is coughing with great amounts of yellow sputum. Patient describes that she wakes up in the middle of the night gasping for air. Patient states nothing has made her symptoms better. Patient said all her symptoms worsened today. Patient says she has a pounding headache and feels dizzy. Patient states she has ran out of her albuterol and steroid medication, and used to take it when she needed it. Patient admits to subjective fever, sore throat, constipation and back pain. She admits to losing 15 pounds. Patient denies diaphoresis, changes in vision, palpitations, abdominal pain, Nausea, vomiting, dysuria, rashes. She denies recent travel. Patient is sleepy during encounter, and often falls sleep during history taking. During stay, patient had an Chest Xray showing: "Dense consolidative opacification seen within the right infrahilar region suggestive for possible infiltrate. Posttreatment interval followup is recommended to ensure resolution and exclude underlying lesion. Few scattered nodular densities in the right upper and left lower lung zones. Diffuse increased interstitial lung markings. Right hilar prominence." Patient was treated for the pneumonia with Doxyclicine 100 mg Q12H & Ceftriaxone 1gm Q24H. Patient asthma was treated with duonebs. Patient was going to be further worked up for weight loss she mentioned; however I received a page on 11/05/17, approximately 3;30 PM from nurse taking care of patient informing me that patient has eloped. I went downstairs and confirmed patient was no longer in her room. Nurse informed me that the peripheral IV line was removed by the patient and was left in the trash can. The above is only a brief summary of the patient while her stay in the hospital. For a full history, please see EMR. Discharge Exam - Additional Findings Additional findings: Unable to perform as patient eloped AMA. Discharge Plan - Follow Up Plan Condition: FAIR Disposition: ELOPED FROM NURSING UNIT <Myranda Steinberg - Last Filed: 11/07/17 13:45> Provider - Provider Date of Admission: 11/04/17 22:52 Attending physician: Karl Galindo MD Hospital Course - Lab Results Lab Results: Micro Results 11/04/17 22:13 Blood Blood Culture - Preliminary NO GROWTH AFTER 48 HOURS 11/04/17 22:10 Blood Blood Culture - Preliminary NO GROWTH AFTER 48 HOURS Most Recent Lab Values WBC 20.8 K/uL (4.8-10.8) H 11/05/17 08:11 RBC 4.31 Mil/uL (3.80-5.20) 11/05/17 08:11 Hgb 11.5 g/dL (11.0-16.0) 11/05/17 08:11 Hct 35.3 % (34.0-47.0) 11/05/17 08:11 MCV 81.8 fL (81.0-99.0) 11/05/17 08:11 MCH 26.7 pg (27.0-31.0) L 11/05/17 08:11 MCHC 32.7 g/dL (33.0-37.0) L 11/05/17 08:11 RDW 14.3 % (11.5-14.5) 11/05/17 08:11 Plt Count 285 K/uL (130-400) 11/05/17 08:11 MPV 9.3 fL (7.2-11.7) 11/05/17 08:11 Neut % (Auto) 93.3 % (50.0-75.0) H 11/05/17 08:11 Lymph % (Auto) 4.4 % (20.0-40.0) L 11/05/17 08:11 Mower % (Auto) 2.1 % (0.0-10.0) 11/05/17 08:11 Eos % (Auto) 0.0 % (0.0-4.0) 11/05/17 08:11 Baso % (Auto) 0.2 % (0.0-2.0) 11/05/17 08:11 Neut # (Auto) 19.4 K/uL (1.8-7.0) H 11/05/17 08:11 Lymph # (Auto) 0.9 K/uL (1.0-4.3) L 11/05/17 08:11 Mower # (Auto) 0.4 K/uL (0.0-0.8) 11/05/17 08:11 Eos # (Auto) 0.0 K/uL (0.0-0.7) 11/05/17 08:11 Baso # (Auto) 0.0 K/uL (0.0-0.2) 11/05/17 08:11 Neutrophils % (Manual) 93 % (50-75) H 11/05/17 08:11 Lymphocytes % (Manual) 5 % (20-40) L 11/05/17 08:11 Monocytes % (Manual) 2 % (0-10) 11/05/17 08:11 Platelet Estimate Normal (NORMAL) 11/05/17 08:11 Polychromasia Slight 11/05/17 08:11 Hypochromasia (manual) Slight 11/05/17 08:11 PT 16.4 SECONDS (9.7-12.2) H 11/04/17 22:24 INR 1.5 11/04/17 22:24 APTT 33 SECONDS (21-34) 11/04/17 22:24 pO2 44 mm/Hg (30-55) 11/04/17 22:11 VBG pH 7.39 (7.32-7.43) 11/04/17 22:11 VBG pCO2 35 mmHg (40-60) L 11/04/17 22:11 VBG HCO3 22.0 mmol/L 11/04/17 22:11 VBG Total CO2 22.3 mmol/L (22-28) 11/04/17 22:11 VBG O2 Sat (Calc) 87.1 % (40-65) H 11/04/17 22:11 VBG Base Excess -3.1 mmol/L (0.0-2.0) L 11/04/17 22:11 VBG Potassium 2.1 mmol/L (3.6-5.2) L* 11/04/17 22:11 Sodium 143.0 mmol/l (132-148) 11/04/17 22:11 Chloride 113.0 mmol/L (98-107) H 11/04/17 22:11 Glucose 90 mg/dl (65-105) 11/04/17 22:11 Lactate 0.9 mmol/L (0.7-2.1) 11/04/17 22:11 Crit Value Called To Dr de la cruz 11/04/17 22:11 Crit Value Called By 11/04/17 22:11 Crit Value Read Back Y 11/04/17 22:11 Blood Gas Notified Time 221711/04/17 22:11 Sodium 137 mmol/L (132-148) 11/05/17 08:11 Potassium 4.4 mmol/L (3.6-5.2) 11/05/17 08:11 Chloride 100 mmol/L (98-107) 11/05/17 08:11 Carbon Dioxide 25 mmol/L (22-30) 11/05/17 08:11 Anion Gap 16 (10-20) 11/05/17 08:11 BUN 9 mg/dL (7-17) 11/05/17 08:11 Creatinine 0.4 mg/dL (0.7-1.2) L 11/05/17 08:11 Est GFR ( Amer) > 60 11/05/17 08:11 Est GFR (Non-Af Amer) > 60 11/05/17 08:11 Random Glucose 224 mg/dL (65-105) H 11/05/17 08:11 Calcium 9.2 mg/dl (8.6-10.4) 11/05/17 08:11 Iron 12 ug/dL (37-170) L 11/05/17 08:11 TIBC 236 ug/dL (250-450) L 11/05/17 08:11 % Saturation 5 (20-55) L 11/05/17 08:11 Total Bilirubin 0.7 mg/dL (0.2-1.3) 11/04/17 22:24 AST 22 U/L (14-36) 11/04/17 22:24 ALT 29 U/L (9-52) 11/04/17 22:24 Alkaline Phosphatase 105 U/L (38-126) 11/04/17 22:24 Total Protein 7.7 g/dL (6.3-8.3) 11/04/17 22:24 Albumin 4.4 g/dL (3.5-5.0) 11/04/17 22:24 Globulin 3.4 gm/dL (2.2-3.9) 11/04/17 22:24 Albumin/Globulin Ratio 1.3 (1.0-2.1) 11/04/17 22:24 Free T4 1.45 ng/dL (0.78-2.19) 11/05/17 07:12 TSH 3rd Generation 0.06 mIU/L (0.46-4.68) L 11/05/17 08:11 Beta HCG, Quant < 2.39 mIU/ML 11/04/17 22:55 Venous Blood Potassium 2.1 mmol/L (3.6-5.2) L* 11/04/17 22:11 Urine Opiates Screen Positive (NEGATIVE) H 11/05/17 13:33 Urine Methadone Screen Negative (NEGATIVE) 11/05/17 13:33 Ur Barbiturates Screen Negative (NEGATIVE) 11/05/17 13:33 Ur Phencyclidine Scrn Negative (NEGATIVE) 11/05/17 13:33 Ur Amphetamines Screen Negative (NEGATIVE) 11/05/17 13:33 U Benzodiazepines Scrn Positive (NEGATIVE) 11/05/17 13:33 U Oth Cocaine Metabols Negative (NEGATIVE) 11/05/17 13:33 U Cannabinoids Screen Negative (NEGATIVE) 11/05/17 13:33 HIV 1&2 Antibody Screen Negative (NEGATIVE) 11/05/17 08:11 H.influenzae Type B Ag Negative (NEGATIVE) 11/05/17 13:33 Ur L.pneumophila Ag Negative (NEGATIVE) 11/05/17 13:33 N.meningitidis ACY/W135 Negative (NEGATIVE) 11/05/17 13:33 N.meningi B/E.coli K1 Ag Negative (NEGATIVE) 11/05/17 13:33 Group B Strep Antigen Negative (NEGATIVE) 11/05/17 13:33 S. pneumoniae Antigen Negative (NEGATIVE) 11/05/17 13:33 Attending/Attestation - Attestation I have personally seen and examined this patient.: Yes I have fully participated in the care of the patient.: Yes I have reviewed all pertinent clinical information, including history, physical exam and plan: Yes Notes (Text): patient walked out the hospital.
[2017-11-05 19:47] LABS: N MENINGITIS ACY/W135 NEGATIVE (NEGATIVE); STREP PNEUMONIAE NEGATIVE (NEGATIVE); STREPTOCOCCUS B NEGATIVE (NEGATIVE)
[2017-11-05 19:48] LABS: LEGIONELLA AG URINE NEGATIVE (NEGATIVE); N MENINGITIS B/ECOLI K1 NEGATIVE (NEGATIVE)
[2017-11-07] MEDS ORDERED: Pneumococcal 23-Valent Vaccine IM ONE (14:00)
== END 2017-11-05 15:15 | disposition left against medical advice (07) | DRG 194 ==
LOC: C.ER 21:17 → C.5S 22:52
PROVIDERS: ADMIT Internal Medicine; ATTEND Internal Medicine
DX: J18.9 Pneumonia, unspecified organism (principal); R64 Cachexia; J45.901 Unspecified asthma with (acute) exacerbation; G43.909 Migraine, unspecified, not intractable, without status migrainosus

== ENCOUNTER 2018-02-24 14:18 | Emergency (ER) | payer SELFPAY ==
[2018-02-24 14:18] VITALS: BMI 24.9
--- NOTE | 2018-02-24 16:02 | C.PDOC ---
History Of Present Illness Matthew Llamas is a 37 y/o female who presents to the ER for c/o right-sided chest muscle spasm for x2 weeks. Pt was seen at [facility] on 02/17 and received lab work,EKG and X-Ray all results were negative. Pt also received Naprosyn with no relief. Pt notes periodically she has muscle spasm. Pt denies SOB, fever, chills and back pain. Time Seen by Provider: 02/24/18 14:59 Chief Complaint (Nursing): Abdominal Pain History Per: Patient History/Exam Limitations: no limitations Onset/Duration Of Symptoms: Days (x2 weeks) Current Symptoms Are (Timing): Still Present Quality: Other (spasms) Past Medical History Reviewed: Historical Data, Nursing Documentation, Vital Signs Vital Signs: Last Vital Signs Temp 98.2 F 02/24/18 14:22 Pulse 83 02/24/18 14:22 Resp 16 02/24/18 14:22 BP 115/76 02/24/18 14:22 Pulse Ox 98 02/24/18 14:22 - Medical History PMH: Asthma, Back Problems, Migraine Surgical History: (x3) - [facility] Procedures INTRODUCE OF OTH THERAP SUBST INTO RESP TRACT, VIA OPENING (07/04/15) Family History: States: Unknown Family Hx - Social History Hx Tobacco Use: Yes Hx Alcohol Use: No Hx Substance Use: No - Immunization History Hx Tetanus Toxoid Vaccination: No Hx Influenza Vaccination: No Hx Pneumococcal Vaccination: No Review Of Systems Except As Marked, All Systems Reviewed And Found Negative. Constitutional: Negative for: Fever, Chills Cardiovascular: Positive for: Other (chest wall pain) Respiratory: Negative for: Shortness of Breath Gastrointestinal: Positive for: Abdominal Pain Musculoskeletal: Positive for: Other (muscle spasm right chest). Negative for: Back Pain Physical Exam - Physical Exam Appears: Well, Non-toxic, In Acute Distress (writhing in pain ) Skin: Normal Color, Warm, Dry Head: Normacephalic Eye(s): bilateral: Normal Inspection, PERRL Chest: Tenderness (right anterior chest wall) Cardiovascular: Rhythm Regular Respiratory: Normal Breath Sounds Gastrointestinal/Abdominal: Soft Back: No CVA Tenderness Extremity: Normal ROM (x4) Neurological/Psych: Oriented x3, Normal Speech Gait: Steady ED Course And Treatment O2 Sat by Pulse Oximetry: 98 (RA) Pulse Ox Interpretation: Normal Progress Note: Treated with flexeril and toradol IM. On re-evaluation feeling better abdomen soft, lungs clear in no distress Reassessment Condition: Improved Medical Decision Making Medical Decision Making: Impression: right-sided chest wall pain Plans: -- Flexeril -- toradol Reassess: Patient is resting comfortably, is no longer having pain. Patient is being discharged home and is being advised to follow up with physician/clinic in 1-2 days. Disposition Counseled Patient/Family Regarding: Diagnosis, Need For Followup, Rx Given - Disposition Referrals: [facility] [Outside] [facility]Outside] Disposition: HOME/ ROUTINE Disposition Time: 18:35 Condition: IMPROVED Additional Instructions: Follow up with PMD for further evaluation Prescriptions: Cyclobenzaprine [Cyclobenzaprine HCl] 10 mg PO BID PRN #10 tab PRN Reason: Muscle Spasm Naproxen [Naprosyn] 1 tab PO BID PRN #25 tab PRN Reason: Pain Instructions: Muscle Spasms (DC) Forms: [employer] (Malagasy) - POA Present On Arrival: None, Deep Vein Thrombosis / PE - Clinical Impression Clinical Impression: Muscle spasm - 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 - Scribe Statement The provider has reviewed the documentation as recorded by the Scottie Eric Do All medical record entries made by the Scottie were at my direction and personally dictated by me. I have reviewed the chart and agree that the record accurately reflects my personal performance of the history, physical exam, medical decision making, and the department course for this patient. I have also personally directed, reviewed, and agree with the discharge instructions and disposition.
[2018-02-24 16:13] VITALS: BP 110/62; PULSE 84; RESP 18; TEMP 98.3
[2018-02-24 18:21] VITALS: O2SAT 98
== END 2018-02-24 16:20 | disposition home or self-care (01) ==
LOC: C.ER 14:18
DX: M62.838 Other muscle spasm (principal)
CPT/HCPCS: 96372; 99285; J1885

== ENCOUNTER 2018-05-15 17:51 | Emergency (ER) | payer SELFPAY ==
[2018-05-15 17:51] VITALS: BMI 24.9
[2018-05-15 18:00] VITALS: BP 121/75; PULSE 103; RESP 17; TEMP 98.5; O2SAT 97
--- NOTE | 2018-05-15 18:51 | C.PDOC ---
History Of Present Illness 37 year old female presents complaining of itchy scalp s/p hair dye. She state that she left the dye on her hair for more than the recommended time and developed intense pruritus and redness on her scalp and forehead. She states that front of her head has some clear drainage from scratching with her artificial nails. She denies any fever, chills, sore throat, N/V, abdominal pain, cough, and chest pain. She denies any use of meds. Time Seen by Provider: 05/15/18 18:20 Chief Complaint (Nursing): Abnormal Skin Integrity History Per: Patient History/Exam Limitations: no limitations Onset/Duration Of Symptoms: Sudden Onset Current Symptoms Are (Timing): Still Present Location Of Injury: Anterior: Head (mainly in the frontal and occipital regions; as well as forehead), Posterior: Head Quality Of Symptoms: Painful, Itching, Draining Severity: Moderate Pain Scale Rating Of: 6 Past Medical History Reviewed: Historical Data, Nursing Documentation, Vital Signs Vital Signs: Last Vital Signs Temp 98.5 F 05/15/18 17:57 Pulse 103 H 05/15/18 17:57 Resp 17 05/15/18 17:57 BP 121/75 05/15/18 17:57 Pulse Ox 97 05/15/18 17:57 - Medical History PMH: Asthma, Back Problems, Migraine Denies: Chronic Kidney Disease Surgical History: (x3) - [facility] Procedures INTRODUCE OF OTH THERAP SUBST INTO RESP TRACT, VIA OPENING (07/04/15) Family History: States: Unknown Family Hx - Social History Hx Tobacco Use: Yes Hx Alcohol Use: No Hx Substance Use: No (DENIES) - Immunization History Hx Tetanus Toxoid Vaccination: No Hx Influenza Vaccination: No Hx Pneumococcal Vaccination: No Review Of Systems Constitutional: Negative for: Fever, Chills, Weakness Eyes: Negative for: Pain ENT: Negative for: Nose Discharge, Nose Congestion, Throat Swelling Cardiovascular: Negative for: Chest Pain Respiratory: Negative for: Cough, Wheezing Gastrointestinal: Negative for: Nausea, Vomiting, Abdominal Pain Skin: Positive for: Rash (on forehead and scalp ) Physical Exam - Physical Exam Appears: Well, Non-toxic, No Acute Distress Skin: Normal Color, Warm, Rash (pruritic erythematous rash on forhead and scalp (frontal and occipital region), draining clear fluid from excoriation ) Head: Normacephalic, Tenderness Eye(s): bilateral: Normal Inspection, PERRL Ear(s): Bilateral: TM Obscured By Wax Nose: Normal, No Discharge Oral Mucosa: Moist Tongue: No Swelling Throat: Normal, No Erythema, No Exudate Neck: Normal ROM, Supple Lymphatic: No Adenopathy Cardiovascular: Rhythm Regular Respiratory: Normal Breath Sounds, No Wheezing Gastrointestinal/Abdominal: Bowel Sounds, Soft, No Tenderness Neurological/Psych: Oriented x3, Normal Speech, Normal Cognition, Normal Sensation ED Course And Treatment O2 Sat by Pulse Oximetry: 97 Medical Decision Making Medical Decision Making: A/P: Allergic dermatitis on scalp due to hair dye - Benadryl 25mg, Pepcid 20mg, and Pred 60mg given stat; patient noted improvement - continue Benadryl 25mg po BID prn itching - continue Pepcid 20mg dialy - continue Pred and taper to 20mg and stop - start Keflex 500mg bID x 5 days - follow up with PCP for further evaluation - patient verbalized understanding Disposition Counseled Patient/Family Regarding: Diagnosis, Need For Followup, Rx Given - Disposition Referrals: [facility] [Outside] Disposition: HOME/ ROUTINE Disposition Time: 18:51 Condition: IMPROVED Additional Instructions: PIETER RODGERS, thank you for letting us take care of you today. Your provider was ED Physician and you were treated for HEAD PAIN. The emergency medical care you received today was directed at your acute symptoms. If you were prescribed any medication, please fill it and take as directed. It may take several days for your symptoms to resolve. Return to the Emergency Department if your symptoms worsen, do not improve, or if you have any other problems. Please contact your doctor or call one of the physicians/clinics you have been referred to that are listed on the Patient Visit Information form that is included in your discharge packet. Bring any paperwork you were given at discharge with you along with any medications you are taking to your follow up visit. Our treatment cannot replace ongoing medical care by a primary care provider outside of the emergency department. Thank you for allowing the [facility] team to be part of your care today. 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
== END 2018-05-15 19:03 | disposition home or self-care (01) ==
LOC: C.ER 17:51
DX: L23.9 Allergic contact dermatitis, unspecified cause (principal)

== ENCOUNTER 2018-09-11 04:25 | Emergency (ER) | payer SELFPAY ==
[2018-09-11 04:25] VITALS: BMI 20.1
[2018-09-11 04:43] VITALS: TEMP 98.2
--- NOTE | 2018-09-11 05:03 | C.PDOC ---
History Of Present Illness Patient presents with headache for the past few days. Denies vision changes or slurred speech. Patient admits she has been using heroin. Time Seen by Provider: 09/11/18 05:03 Chief Complaint (Nursing): Headache History Per: Patient History/Exam Limitations: no limitations Onset/Duration Of Symptoms: Days Current Symptoms Are (Timing): Still Present Severity: Moderate Pain Scale Rating Of: 4 Preceeding Symptoms: None Associated Symptoms: denies: Blurred Vision, Other (Slurred) Recent travel outside of the [place]: No Past Medical History Reviewed: Historical Data, Nursing Documentation, Vital Signs Vital Signs: Last Vital Signs Temp 98.2 F 09/11/18 04:33 Pulse 93 H 09/11/18 04:33 Resp 20 09/11/18 04:33 BP 120/73 09/11/18 04:33 Pulse Ox 99 09/11/18 04:33 Primary Care Provider: FAMILY PROVIDER,NO - Medical History PMH: Asthma, Back Problems, Migraine Denies: Chronic Kidney Disease Surgical History: (x3) - [facility] Procedures INTRODUCE OF OTH THERAP SUBST INTO RESP TRACT, VIA OPENING (07/04/15) Family History: States: No Known Family Hx - Social History Hx Tobacco Use: Yes Hx Alcohol Use: No Hx Substance Use: Yes - Immunization History Hx Tetanus Toxoid Vaccination: No Hx Influenza Vaccination: No Hx Pneumococcal Vaccination: No Review Of Systems Constitutional: Negative for: Fever, Chills Eyes: Negative for: Vision Change Cardiovascular: Negative for: Chest Pain, Palpitations Respiratory: Negative for: Cough, Shortness of Breath Gastrointestinal: Negative for: Nausea, Vomiting Neurological: Positive for: Headache. Negative for: Weakness, Numbness, Change in Speech Physical Exam - Physical Exam Appears: Non-toxic Skin: Warm, Dry Head: Normacephalic Eye(s): bilateral: Normal Inspection, PERRL, EOMI Oral Mucosa: Moist Neck: Trachea Midline, No Midline Cervical Tenderness, No Paracervical Tenderness, No Step Off Deformity, Supple, Other (No nuchal rigidity) Chest: Symmetrical, No Tenderness Cardiovascular: Rhythm Regular Respiratory: No Rales, No Rhonchi, No Wheezing Gastrointestinal/Abdominal: Soft, No Tenderness Extremity: Other (Moves all extremities) Neurological/Psych: Oriented x3 Gait: Steady ED Course And Treatment O2 Sat by Pulse Oximetry: 99 (Room air) Pulse Ox Interpretation: Normal Reevaluation Time: 06:32 Reassessment Condition: Improved Medical Decision Making Medical Decision Making: Upon provider reevaluation patient is feeling better, is medically stable, and requires no further treatment in the ED at this time. Patient will be discharged home . Counseling was provided and all questions were answered regarding diagnosis and need for follow up with the referred clinic. There is agreement to discharge plan. Return if symptoms persist or worsen. Disposition Counseled Patient/Family Regarding: Studies Performed, Diagnosis, Need For Followup - Disposition Referrals: at [facility] [Outside] Disposition: HOME/ ROUTINE Disposition Time: 05:03 Condition: FAIR Instructions: Polysubstance Abuse (DC), Headache, Adult (DC) Forms: [employer] (Kazakh) - Clinical Impression Clinical Impression: Headache, Substance abuse - Scribe Statement The provider has reviewed the documentation as recorded by the Scribe Esteban Feliciano All medical record entries made by the Scribe were at my direction and personally dictated by me. I have reviewed the chart and agree that the record accurately reflects my personal performance of the history, physical exam, medical decision making, and the department course for this patient. I have also personally directed, reviewed, and agree with the discharge instructions and disposition.
[2018-09-11 06:37] VITALS: BP 120/71; PULSE 68; RESP 15; O2SAT 96
== END 2018-09-11 06:55 | disposition home or self-care (01) ==
LOC: C.ER 04:25
DX: R51 Headache (principal); F19.10 Other psychoactive substance abuse, uncomplicated